=== PATIENT | female | born 1950 | race Caucasian/White ===

== ENCOUNTER → 2019-08-17 06:56 | Outpatient (CLI) | payer MEDICARE, SELFPAY ==
--- NOTE | ~2019-08-17 | XR_ITS ---
EXAMINATION: XR chest 2V EXAM DATE: 08/17/2019 07:09 INDICATION: Cough. No fever. Anterior chest pain. TECHNIQUE: Frontal and lateral projections of the chest obtained and reviewed. Comparison is made to prior examination from 07/01/2016. FINDINGS: The lungs are clear. There are no pleural effusions. The cardiomediastinal silhouette is within normal limits. There is no pneumothorax suspected. The bones and soft tissues are unremarkab le. IMPRESSION: No acute cardiopulmonary findings. Reviewed, dictated and finalized at location A.
== END ==
PROVIDERS: PCP Family Medicine; Visit Provider Family Medicine
DX: R05 Cough (principal)
CPT/HCPCS: 71046

== ENCOUNTER 2020-06-21 10:00 | Outpatient (CLI) | payer MEDICARE, SELFPAY ==
--- NOTE | 2020-06-21 10:34 | ECG_ITS ---
Measurements Intervals [place] Rate: 74 P: 45 SC: 199 QRS: 30 QRSD: 90 T: 40 QT: 349 QTc: 388 Interpretive Statements SINUS RHYTHM MINIMAL Q WAVES- INFERIOR LEADS BASELINE ARTIFACT- I, II, III, AVR, AVL, AVF BORDERLINE ECG Electronically Signed On 06-21-2020 10:47:51 REHABILITATION CLERK by Bernard Root D.O.
== END 2020-06-21 10:01 | disposition home or self-care (01) ==
LOC: ANHLAB 10:03 → ANHCARD 10:03
PROVIDERS: Family Provider Family Medicine; PCP Internal Medicine; Visit Provider Internal Medicine
DX: I10 Essential (primary) hypertension (principal)
CPT/HCPCS: 93005

== ENCOUNTER → 2020-10-19 01:47 | Outpatient (CLI) | payer MEDICARE, SELFPAY ==
[2020-10-19 19:55] LABS: SARS-CoV-2 RNA PCR Negative
== END ==
PROVIDERS: PCP Internal Medicine; Visit Provider Internal Medicine Gastroenterology
DX: Z01.812 Encounter for preprocedural laboratory examination (principal); Z20.822 Contact with and (suspected) exposure to COVID-19
CPT/HCPCS: C9803; U0003; U0005

== ENCOUNTER 2020-10-23 02:48 | Day surgery (SDC) | payer MEDICARE, SELFPAY ==
[2020-10-11 14:55] VITALS: BMI 27.5
[2020-10-23 09:28] VITALS: BP 142/73; PULSE 75; RESP 16; TEMP 36.6; O2SAT 95; BMI 28.9
[2020-10-23] MEDS: LACTATED RINGERS 1,000 ML 150 ML IV CONT (09:45)
--- NOTE | 2020-10-23 09:50 | WPDANESEPPF ---
Anes - Initial Pre Proc Eval Procedure: Operation Date: 10/23/20 10:00 Proposed Procedures p Esophagogastroduodenoscopy - Bill Suárez MD Date/Time: 10/23/20 09:50 Surgeon: Bill Suárez MD Pre Op Diagnosis: epigastric pain, GERD Patient Data Age: 70 Gender: F Height: 5 ft 5 in Weight: 78.9 kg Last Vital Signs Temp 97.8 F 10/23/20 09:28 Pulse 75 10/23/20 09:28 Resp 16 10/23/20 09:28 BP 142/73 H 10/23/20 09:28 Pulse Ox 95 10/23/20 09:28 Allergies Allergy/AdvReac Type Severity Reaction Status Date / Time No Known Allergies Allergy Verified 10/23/20 09:26 Home Medications Medication Instructions Recorded Confirmed Type ascorbic acid (vitamin C) 1,000 mg 1 gm PO DAILY 02/28/20 10/11/20 History tablet flaxseed oil 1,000 mg capsule 1,000 mg PO DAILY 02/28/20 10/11/20 History valacyclovir 500 mg tablet 500 mg PO DAILY 02/28/20 10/11/20 History vit C 250 mg-vit E 90 mg-zinc 40 1 tablet PO BID 02/28/20 10/11/20 History mg-copper 1 wl-cxzdwh-zxqdmo capsule losartan 25 mg tablet 25 mg PO DAILY #90 tablet 06/19/20 10/11/20 Rx omeprazole 40 mg capsule,delayed 40 mg PO DAILY #90 cap 07/18/20 10/11/20 Rx release rosuvastatin 5 mg tablet 5 mg PO DAILY #90 tablet 08/14/20 10/11/20 Rx calcium carbonate 600 mg calcium 600 mg PO BID 10/04/20 10/11/20 History (1,500 mg) tablet fluticasone propionate [Flonase 1 spray NASAL BID PRN 10/11/20 10/11/20 History Allergy Relief] Patient hx anesthesia problems: none Family hx anesthesia problems: none PMFSH Past Medical History Medical History (Updated 10/23/20 @ 09:48 by Terry Young MD) Acid reflux Dyslipidemia Essential hypertension Social History Social History (Updated 10/04/20 @ 11:11 by Rebecca Garcia MA) Smoking status: Never smoker Second hand tobacco smoke exposure: No Alcohol intake: never Living arrangements: with family Gender identity (if verbalized by the patient): Female Spiritual care concerns: No Anes - Eval Final PreProcedure Day of Procedure 10/23/20 09:50 Patient weight: obese Heart: regular rate and rhythm Lungs: clear to auscultation Airway: Mallampati scale class II Neurological: alert and oriented Last oral intake: >/= 8 hours ASA classification: III Emergent: no Anesthetic plan: proceed Anesthesia type and monitoring: general GIVS and standard monitoring Informed Consent: The patient's anesthetic plan and its attendant risks and benefits were discussed with the patient/family/POA. Questions were solicited and answers provided to the satisfaction of the patient/family/POA.
--- NOTE | 2020-10-23 09:54 | PM.HPGS ---
History of Present Illness History of Present Illness Consent: Risks, benefits, and alternatives have been discussed and questions answered. Patient agrees to proceed with procedure. Chief complaint: epigastric pain, GERD Narrative: Suzette Muir is a 70 year old female Who has had epigastric pain for the last several months. There is no particular pattern. She has a history of having an ulcer several years ago Review of Systems Review of Systems: All systems reviewed & are unremarkable except as noted in HPI and below PMFSH Past Medical History Medical History Acid reflux Dyslipidemia Essential hypertension Social History Social History Smoking status: Never smoker Second hand tobacco smoke exposure: No Alcohol intake: never Living arrangements: with family Gender identity (if verbalized by the patient): Female Spiritual care concerns: No Meds Home Medications and Allergies Home Medications Medication Instructions Recorded Confirmed Type ascorbic acid (vitamin C) 1,000 mg 1 gm PO DAILY 02/28/20 10/11/20 History tablet flaxseed oil 1,000 mg capsule 1,000 mg PO DAILY 02/28/20 10/11/20 History valacyclovir 500 mg tablet 500 mg PO DAILY 02/28/20 10/11/20 History vit C 250 mg-vit E 90 mg-zinc 40 1 tablet PO BID 02/28/20 10/11/20 History mg-copper 1 os-tfbiuy-fyjeit capsule losartan 25 mg tablet 25 mg PO DAILY #90 tablet 06/19/20 10/11/20 Rx omeprazole 40 mg capsule,delayed 40 mg PO DAILY #90 cap 07/18/20 10/11/20 Rx release rosuvastatin 5 mg tablet 5 mg PO DAILY #90 tablet 08/14/20 10/11/20 Rx calcium carbonate 600 mg calcium 600 mg PO BID 10/04/20 10/11/20 History (1,500 mg) tablet fluticasone propionate [Flonase 1 spray NASAL BID PRN 10/11/20 10/11/20 History Allergy Relief] Allergies Allergy/AdvReac Type Severity Reaction Status Date / Time No Known Allergies Allergy Verified 10/23/20 09:26 Vital Signs Vital Signs - 24 hr 10/23/20 09:28 Temperature 36.6 C Pulse Rate 75 Respiratory Rate 16 Blood Pressure 142/73 H Pulse Oximetry 95 Exam Resp: Auscultation: clear to auscultation bilaterally Cardio: Rate: regular rate Rhythm: regular rhythm GI: GI Palp: Yes Soft to palpation and No Tenderness to palpation present (GI) Assessment and Plan Assessment and plan (1) Epigastric pain: Code(s): R10.13 - Epigastric pain Status: Acute Assessment and Plan: EGD with possible biopsy or dilatation or cautery.
[2020-10-23 10:17] VITALS: BP 83/44; PULSE 69; RESP 17; O2SAT 98
[2020-10-23 10:27] VITALS: BP 83/47; PULSE 67; RESP 20; O2SAT 98
[2020-10-23 10:37] VITALS: BP 87/48; PULSE 60; RESP 18; O2SAT 98
== END 2020-10-23 11:01 | disposition home or self-care (01) ==
PROVIDERS: PCP Internal Medicine; Visit Provider Internal Medicine Gastroenterology
PROC: 0DJ08ZZ Inspection of Upper Intestinal Tract, Via Natural or Artificial Opening Endoscopic (ICD-10-PCS; CPT 43235; principal; 2020-10-23 10:00)
DX: R10.13 Epigastric pain (principal); K21.9 Gastro-esophageal reflux disease without esophagitis; K44.9 Diaphragmatic hernia without obstruction or gangrene; K57.10 Diverticulosis of small intestine without perforation or abscess without bleeding; E78.5 Hyperlipidemia, unspecified; I10 Essential (primary) hypertension
CPT/HCPCS: 43239; 87081; 88305; J2704; J7120

== ENCOUNTER 2021-11-13 12:29 | Outpatient (CLI) | payer MEDICARE, SELFPAY ==
--- NOTE | ~2021-11-13 | DEXA_ITS ---
Bone Density Report Name: ELLA BLUNT Age: 71 Sex: Female Ethnicity: White Date of : 1950 Indication: postmenopausal; screening for osteoporosis; prior fracture; cancer; Referring Provider: OLIVIA WILLARD Study: Bone densitometry was performed. Exam Date: November 13, 2021 Accession number: [id number] Bone Density: Region BMD T-score Z-score Classification AP Spine(L1-L4) 1.046 0.0 2.1 Normal Femoral Neck (Left) 0.768 -0.7 1.1 Normal Total Hip (Left) 0.924 -0.1 1.4 Normal Femoral Neck (Right) 0.736 -1.0 0.8 Normal Total Hip (Right) 0.867 -0.6 0.9 Normal Total Hip Mean 0.895 -0.4 1.2 Normal World Health Organization criteria for BMD impression classify patients as: Normal (T-score at or above -1.0), Osteopenia (T-score between -1.0 and -2.5), or Osteoporosis (T-score at or below -2.5). 10-year Fracture Risk: FRAX not reported because: All T-scores for Spine Total, Hip Total, Femoral Neck at or above -1.0 Clinical Information Provided by Patient: Has had a low trauma fracture Has used the following medications: Vitamin D, Calcium Has the following medical conditions: Cancer Patient maximum height was 65 Menopause Age: 54 Onset of menses at age 18 Number of children 3 Impression: The patient has normal bone mass. The patient has risk factors, including: previous fracture. Discussion: BONE DENSITY IS ABOVE THE MINIMUM DESIRABLE LEVEL AT ALL SKELETAL SITES TESTED. This patient?s bone mineral density is above the minimum desirable level (T-score -1.0 or better) at all sites measured. The patient should follow a healthful lifestyle (good nutrition with adequate calcium and vitamin D, and appropriate weight-bearing exercise). Follow-Up: Consider repeating this study in 5 years or sooner if there is some new clinical indication. Reported by: THIAGO on 11/13/2021 12:45:00 PM. Reviewed, dictated and finalized at location AKiya MEEK
== END 2021-11-13 12:30 | disposition home or self-care (01) ==
PROVIDERS: PCP Internal Medicine; Visit Provider Internal Medicine
DX: Z78.0 Asymptomatic menopausal state (principal)
CPT/HCPCS: 77080

== ENCOUNTER 2022-02-13 13:50 | Outpatient (CLI) | payer MEDICARE, SELFPAY | END 2022-02-13 13:51 | disposition home or self-care (01) | LOC: ANHAUDIO 13:51 | PROVIDERS: PCP Internal Medicine; Referring Provider Nurse Practitioner; Visit Provider Nurse Practitioner | DX: H91.90 Unspecified hearing loss, unspecified ear (principal) | CPT/HCPCS: 92557; 92567 ==

== ENCOUNTER → 2022-10-09 15:38 | Outpatient (CLI) | payer MEDICARE, SELFPAY ==
--- NOTE | ~2022-10-09 | XR_ITS ---
EXAMINATION: XR_RIBSBICXR1_CR DATE: 10/09/2022 16:00 INDICATION: Left anterior chest lump with tenderness. TECHNIQUE: A frontal view of the chest and 2 views on 3 radiographs of the right ribs and 2 views on 3 radiographs of the left ribs were obtained. COMPARISON: Chest 2 views 08/17/2019 FINDINGS: There is no pneumonia, pleural effusion, or pneumothorax. The heart size is normal. There i s no rib fracture. IMPRESSION: 1. No rib fracture. Reviewed, dictated and finalized at location E. IMPRESSION: 1. No rib fracture.
== END ==
PROVIDERS: PCP Family Medicine; Visit Provider Family Medicine
DX: R22.2 Localized swelling, mass and lump, trunk (principal)
CPT/HCPCS: 71111

== ENCOUNTER → 2022-10-16 11:11 | Outpatient (CLI) | payer MEDICARE, OTHER, SELFPAY ==
--- NOTE | ~2022-10-16 | US_ITS ---
US soft tissue chest 10/16/2022 11:23 Indication: Palpable area left lower ribs for 2 months. Tenderness. Procedure: High-resolution Limited ultrasound of the left lower ribs in the area of palpable concern Comparison: No prior studies for comparison. Findings: Normal heterogeneous soft tissues without focal solid or cystic mass. Impression: 1: Normal soft tissue ultrasound of the left lower rib region in the area of palpable concern. Reviewed, dictated and finalized at location B. Impression: 1: Normal soft tissue ultrasound of the left lower rib region in the area of pa lpable concern.
== END ==
PROVIDERS: PCP Family Medicine; Visit Provider Family Medicine
DX: R07.81 Pleurodynia (principal)
CPT/HCPCS: 76604

== ENCOUNTER 2023-02-05 17:35 | Emergency (ER) | payer MEDICARE, SELFPAY ==
--- NOTE | ~2023-02-05 | XR_ITS ---
EXAMINATION: XR wrist RT min 3V DATE: 02/05/2023 18:46 INDICATION: Right wrist pain post fall TECHNIQUE: Posteroanterior, ulnar deviation, oblique, and lateral views of the right wrist were obtai ivett. COMPARISON: Right hand radiographs dated 02/05/2023 at 5:56 PM FINDINGS: Evident only on the oblique projection is a punch type fracture involving the scaphoid fossa with approximately 1 mm depression of the affected portion of the articular cortex. Fractures mildly comm inuted with additional minimally displaced fracture along the dorsal cortex of the metaphysis. No oth er fractures identified. 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 IMPRESSION: 1. 1 mm depression of a mildly comminuted punch type fracture involving the scaphoid fossa and po sterior metaphyseal cortex of the distal right radius Reviewed, dictated and finalized at location A. IMPRESSION: 1. 1 mm depression of a mildly comminuted punch type fracture involving the scaphoid fossa and posterior metaphyseal cortex of the distal right radius
--- NOTE | ~2023-02-05 | XR_ITS ---
EXAMINATION: XR elbow RT 2V DATE: 02/05/2023 18:46 INDICATION: Diffuse right elbow pain post fall TECHNIQUE: Anteroposterior and lateral views of the right elbow were obtained. COMPARISON: None. FINDINGS: Alignment is normal. No fracture. Mild osteoarthritis at the right elbow. Suggestion of a small right elbow joint effusion with displacement of the anterior but not the posterior fat pad. Soft tissues a re otherwise unremarkable. IMPRESSION: 1. Mild osteoarthritis at the right elbow with small joint effusion but no evident acute osseous abno rmality. Reviewed, dictated and finalized at location A. IMPRESSION: 1. Mild osteoarthritis at the right elbow with small joint effusion but no evid ent acute osseous abnormality.
--- NOTE | ~2023-02-05 | XR_ITS ---
EXAMINATION: XR hand RT min 3V DATE: 02/05/2023 18:09 INDICATION: Right hand pain post fall TECHNIQUE: Posteroanterior, oblique and lateral views of the right hand were obtained. COMPARISON: None. FINDINGS: Diffuse osteopenia. There appears to be some widening at the scapholunate interval. Alignment is othe rwise normal. No fracture. Polyarticular osteoarthritis, moderate to severe at the radiocarpal joint with cystic change underlying the lunate fossa. Additional moderate to severe osteoarthritis at the f irst interphalangeal and second fifth distal interphalangeal joints, moderate severity osteoarthritis at the first carpometacarpal and first and fourth metacarpophalangeal joints and mild osteoarthritis at the midcarpal, triscaphe, and remaining metacarpophalangeal and interphalangeal joints. IMPRESSION: 1. Age-indeterminate widening of the scapholunate interval suggestive of scapholunate ligament tear/i nsufficiency. No fracture or other acute osseous abnormality. 2. 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 3. Diffuse osteopenia. Reviewed, dictated and finalized at location A. IMPRESSION: 1. Age-indeterminate widening of the scapholunate interval suggestive of scapho lunate ligament tear/insufficiency. No fracture or other acute osseous abnormal ity. 2. 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 3. Diffuse osteopenia.
--- NOTE | ~2023-02-05 | XR_ITS ---
EXAMINATION: XR foot LT min 3V DATE: 02/05/2023 18:09 INDICATION: Distal lateral left foot pain post fall TECHNIQUE: Dorsoplantar, two oblique and lateral views of the left foot were obtained. COMPARISON: 05/19/2010 FINDINGS: 40 degrees dorsal/medial angulation of a nondisplaced transverse extra articular fracture across the neck of the left fifth metatarsal. No other fractures identified. Alignment is otherwise normal. Mild polyarticular osteoarthritis at the first metatarsophalangeal joint and multiple tarsometatarsal and interphalangeal joints. Moderate-sized plantar calcaneal spur. IMPRESSION: 1. 40 degrees dorsal/medial angulation of a nondisplaced fracture at the neck of the fifth metatarsal . Reviewed, dictated and finalized at location A. IMPRESSION: 1. 40 degrees dorsal/medial angulation of a nondisplaced fracture at the neck o f the fifth metatarsal.
[2023-02-05 17:47] VITALS: BP 135/81; PULSE 95; RESP 16; TEMP 37.3; O2SAT 99
--- NOTE | 2023-02-05 18:19 | ED.FALL ---
HPI - Fall General Chief Complaint: Extremity Injury, Upper Stated Complaint: right arm injury Time Seen by Provider: 02/05/23 18:19 Source: patient Mode of arrival: ambulatory Limitations: no limitations History of Present Illness HPI Narrative: 72-year-old female presents with complaint left pain foot, right wrist pain and right elbow pain. Patient reports that she slipped on garage floor around 3:00 p.m. today. Denies hitting head. Was able to get up on her own. States she put right arm down to catch her fall. distal neurovascularly intact to right upper extremity. Decreased range of motion to right wrist due to pain. All systems reviewed and negative except as noted above. Related Data Home Medications Medication Instructions Recorded Confirmed flaxseed oil 1,000 mg capsule 1,000 mg PO DAILY 02/28/20 02/05/23 valacyclovir 500 mg tablet 500 mg PO DAILY 02/28/20 02/05/23 vit C 250 mg-vit E 90 mg-zinc 40 1 tablet PO BID 02/28/20 02/05/23 mg-copper 1 zy-cdqqgt-uujfyp capsule (PreserVision AREDS-2) calcium carbonate 600 mg calcium 600 mg PO BID 10/04/20 02/05/23 (1,500 mg) tablet (Calcium) xnlthfjl-bwu-mcija acid 0.4 1 tablet PO DAILY 08/05/22 02/05/23 mg-lycopene 300 mcg-lutein 250 mcg tablet (Centrum Silver) Allergies Allergy/AdvReac Type Severity Reaction Status Date / Time No Known Allergies Allergy Verified 02/05/23 19:17 Review of Systems Review of Systems: CONSTITUTIONAL: Denies fever, chills, or sweats. EYES: Denies visual changes, redness, or discharge. ENT: Denies rhinorrhea, congestion, sore throat, or otalgia. CARDIOVASCULAR: Denies chest pain, palpitations, or edema. RESPIRATORY: Denies cough or dyspnea. GASTROINTESTINAL: Denies abdominal pain, nausea, vomiting, or diarrhea. GENITOURINARY: Denies dysuria or hematuria. SKIN: Denies rash or itching. MUSCULOSKELETAL: Denies back pain, joint pain, or myalgia. Reports pain to left foot, right wrist and right elbow. NEUROLOGIC: Denies headache, numbness, or weakness. PSYCHIATRIC: Denies anxiety or depression. All other systems reviewed are negative, except as documented in HPI. [facility] Past Medical History Medical History Acid reflux Dyslipidemia Essential hypertension Social History Social History Smoking status: Never smoker Second hand tobacco smoke exposure: No Alcohol intake: never Substance use: never Substance use type: does not use Living arrangements: with family Gender identity (if verbalized by the patient): Female Spiritual care concerns: No Comments At time of signature, agree with nursing past medical, surgical, social and family history. There is no relevant family history pertinent to the presenting complaint. Exam Narrative: GENERAL: This is a well-nourished, well-developed patient, in no apparent distress. HEAD: normocephalic, atraumatic. EYES: PERRL. Sclera clear/white. Vision is grossly intact. EARS: External ears normal NOSE: External nose normal NECK: Neck supple, non-tender without lymphadenopathy, masses or thyromegaly. CARDIOVASCULAR: Regular rate and rhythm without murmurs, gallops, or rubs. RESPIRATORY: Clear to auscultation. Breath sounds equal bilaterally. No wheezes, rales, or rhonchi. SKIN: warm, Dry, intact with no suspicious lesions or rash, good texture and turgor. NEURO: awake, alert, and oriented to person, place and time. There were no obvious focal neurologic abnormalities. EXTREMITIES: Tenderness to distal aspect of left 5th metatarsal. Mild bruising noted. Tenderness to right radius with moderate swelling. Decreased range of motion to right wrist due to pain. Distal neurovascularly intact. Normal Range of motion to right elbow. Course Course Level of Care: Express Care Visit Vital Signs Vital signs: Vital Signs Temperature 37.3 C
== END 2023-02-05 19:54 | disposition home or self-care (01) ==
PROVIDERS: Emergency Provider Nurse Practitioner Family; PCP Family Medicine
DX: S92.355A Nondisplaced fracture of fifth metatarsal bone, left foot, initial encounter for closed fracture (principal); S52.501A Unspecified fracture of the lower end of right radius, initial encounter for closed fracture; S62.001A Unspecified fracture of navicular [scaphoid] bone of right wrist, initial encounter for closed fracture; W01.0XXA Fall on same level from slipping, tripping and stumbling without subsequent striking against object, initial encounter; K21.9 Gastro-esophageal reflux disease without esophagitis; E78.5 Hyperlipidemia, unspecified; I10 Essential (primary) hypertension
CPT/HCPCS: 29125; 73070; 73080; 73110; 73130; 73630; 99214; A4565; G0463

== ENCOUNTER 2023-06-01 11:17 | Emergency (ER) | payer MEDICARE, SELFPAY ==
--- NOTE | ~2023-06-01 | CT_ITS ---
EXAMINATION: CT abd pelvis lumbar wo con DATE: 06/01/2023 19:39 INDICATION: hematuria, BACK PAIN TECHNIQUE: Computed tomography (CT) of the abdomen and pelvis and lumbar spine was performed without intravenous contrast. Automated exposure control and iterative reconstruction technique were employed . The dose-length product was 687.78 mGy-cm. COMPARISON: 11/05/2010. FINDINGS: Abdomen/pelvis: Lower thorax: Aortic valve and coronary artery calcification. Minimal bibasilar scar/atelectasis. Liver: Multiple liver cysts. Biliary/Gallbladder: Gallbladder is normal. No bile duct dilation. Pancreas: No mass or duct dilation. Spleen: Normal. Adrenals:No mass. Kidneys: No suspicious mass, obstructing stone, or hydronephrosis. GI tract: Uncomplicated duodenal diverticulum. No small or large bowel dilation. Appendix not visuali zed. Diverticulosis without diverticulitis. Mesentery/Peritoneum: No ascites, mass, or free air. Retroperitoneum: No mass. Atherosclerotic abdominal aortic and/or arterial calcifications. Pelvis: Pelvic organs are within normal limits. Soft Tissues: Soft tissues and body wall unremarkable. Bones: No acute osseous finding. Lumbar spine: 5 nonrib-bearing lumbar-type vertebral bodies. Pedicles intact. Normal vertebral body alignment. Vert ebral body heights preserved. Multilevel moderate degenerative disc disease and facet arthropathy. No fracture or dislocation. No severe central canal or neural foraminal narrowing. IMPRESSION: No acute abdominopelvic process detected. No fracture or traumatic malalignment detected in the lumbar spine. Reviewed, dictated and finalized at location K. 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
--- NOTE | ~2023-06-01 | US_ITS ---
EXAMINATION: US venous doppler [facility] DATE: 06/01/2023 17:38 INDICATION: leg swelling . TECHNIQUE: Grayscale images without and with compression and Doppler images of the bilateral lower ex tremity veins were obtained. COMPARISON: Ultrasound venous lower extremity right 04/30/2016 FINDINGS: The right common femoral vein, profunda (deep) femoral vein, femoral vein, popliteal vein, peroneal v ein, posterior tibial veins, and greater saphenous vein are patent. The left common femoral vein, profunda (deep) femoral vein, femoral vein, popliteal vein, peroneal v ein, posterior tibial veins, and greater saphenous vein are patent. Garcia's cyst. IMPRESSION: Patent bilateral lower extremity veins. No evidence of deep venous thrombosis. Reviewed, dictated and finalized at location K. [employer] SAL[employer]
[2023-06-01 11:23] VITALS: BP 170/85; PULSE 93; RESP 16; TEMP 36.9; O2SAT 96
--- NOTE | 2023-06-01 15:05 | ED.GENADULT ---
HPI - General Adult General Chief complaint: Extremity Injury, Lower Stated complaint: leg and feet edema Time Seen by Provider: 06/01/23 15:04 History of Present Illness HPI narrative: Patient is a 72-year-old female here with lower extremity swelling and back pain. She states that the back pain began about 2 weeks ago. She did see her primary care doctor for this back pain and was started on Robaxin and ibuprofen and a prednisone pack. She notes that has not changed her symptoms in any way since initiating those medications, she has since completed the full course. She notes that the pain is located in her right buttock and radiates down to about her knee. She denies any numbness or weakness associated with the pain. Denies any bowel or bladder incontinence. She has been seeing a chiropractor since the pain began, she has had outpatient x-rays with a chiropractor but no additional imaging. She notes a fall in January and March which resulted in some extremity injuries, no recent falls. She does not remember any enticing event for the back pain. She does Ali notes some lower extremity swelling which began over the last couple of days. She has a history of intermittent foot swelling bilaterally which seems to be more severe when she has been on her feet a lot during the day. She notes that lower extremity swelling seems to extend up to her knees and is associated with a tight feeling in her legs bilaterally. No prior history of PE or DVT. No fever chills, no skin changes. Related Data Home Medications Medication Instructions Recorded Confirmed flaxseed oil 1,000 mg capsule 1,000 mg PO DAILY 02/28/20 05/17/23 valacyclovir 500 mg tablet 500 mg PO DAILY 02/28/20 05/17/23 calcium carbonate 600 mg calcium 600 mg PO BID 10/04/20 05/17/23 (1,500 mg) tablet (Calcium) wgshcedq-brk-eljug acid 0.4 1 tablet PO DAILY 08/05/22 05/17/23 mg-lycopene 300 mcg-lutein 250 mcg tablet (Centrum Silver) Allergies Allergy/AdvReac Type Severity Reaction Status Date / Time No Known Allergies Allergy Verified 06/01/23 15:01 Review of Systems Review of Systems: All systems reviewed & are unremarkable except as noted in HPI and below PMFSH Past Medical History Medical History Acid reflux Dyslipidemia 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 HEAD: Normocephalic, atraumatic. EYES: PERRLA and EOMI. ENT: Nares clear. Mucous membranes moist. NECK: Supple. CHEST: Clear to auscultation. No respiratory distress. HEART: Regular rate and rhythm. Normal peripheral pulses. ABDOMEN: Soft, nontender, nondistended. EXTREMITIES: Normal range of motion. No reproducible midline back pain. Positive straight leg test on the right. Bilateral mildly pitting edema which extends bilateral ankles to the bilateral knees. SKIN: Warm, dry, no rash. NEURO: No focal deficits. Alert and oriented x3. PSYCH: Normal mood and affect. Course Course Emergency Course: Chart review performed. Patient here with lower extremity edema, sciatica. PCP recently gave her steroid and muscle relaxer for her sciatica, finished prescription. PCP visit reviewed from 05/14/23 where she was seen for back pain. They note she was prescribed a medrol dose pack and robaxin. Triage vitals normal. Patient seen evaluated, nontoxic appearing. She has had some ongoing back pain for the last 3 weeks. Will do [place], Flexeril. I did discuss possibility of CT imaging however giv
[2023-06-01 15:06] VITALS: BP 154/94; PULSE 80; RESP 16; O2SAT 97
[2023-06-01 17:03] LABS: Basophils Percent Auto 0.9 % (0.2-1.2); Eosinophils Absolute Auto 0.1 K/mm3 (0-0.3); Eosinophils Percent Auto 1.8 % (0-4.4); Hematocrit 38.3 % (37.0-47.0); Hemoglobin 12.5 g/dL (12.0-15.0); Immature Granulocyte Absolute 0.01 K/mm3 (0.00-0.031); Immature Granulocyte Percent A 0.2 % (0-0.5); Lymphocytes Absolute Auto 0.78 K/mm3 (0.9-3.2); Lymphocytes Percent Auto 17.3 % (18.3-44.2); Mean Corpuscular HGB Conc 32.6 g/dl (32-36); Mean Corpuscular Hemoglobin 30.4 pg (26-34); Mean Corpuscular Volume 93.2 fl (80-100); Mean Platelet Volume 9.2 fl (7.4-10.4); Monocytes Absolute Auto 0.5 K/mm3 (0.1-0.6); Monocytes Percent Auto 11.1 % (2.6-8.5); Neutrophils Absolute Auto 3.1 K/mm3 (1.3-6.7); Neutrophils Percent Auto 68.7 % (45.5-73.1); Platelet Count Result 165 k/mm3 (150-375); Red Blood Count 4.11 M/mm3 (4.2-5.4); Red Cell Distribution Width 14.2 % (11.5-14.5); White Blood Count 4.5 K/mm3 (4.5-10.0)
[2023-06-01 17:11] LABS: Alanine Aminotransferase 29 U/L (6-35); Albumin Level 4.2 g/dL (3.5-5.1); Alkaline Phosphatase 92 U/L (38-126); Anion Gap 6 mmol/L (8-16); Aspartate Amino Transferase 29 U/L (14-36); Bilirubin,Total 0.5 mg/dL (0.2-1.3); Blood Urea Nitrogen 17 mg/dL (7-17); Calcium 9.4 mg/dL (8.4-10.2); Carbon Dioxide 29 mmol/L (22-30); Chloride 104 mmol/L (98-107); Estimated CRCL calculation 52 ml/min; Estimated Glomerular Filt Rate > 60; Glucose 93 mg/dL (65-110); Sodium 139 mmol/L (137-145)
[2023-06-01 17:19] LABS: NT Pro B Type Natriuretic Pept 176 pg/mL (19.9-100)
[2023-06-01] MEDS: CYCLOBENZAPRINE HCL 10 MG TABLET PO (17:41)
[2023-06-01 17:42] VITALS: BP 165/90; PULSE 84; RESP 17; O2SAT 98
[2023-06-01] MEDS: HYDROcodone/acetaminophen (*CRX) 5-325 MG TABLET 1 TAB PO (17:42)
[2023-06-01 18:27] LABS: Appearance Urine Clear (Clear); Bacteria Urine None Seen /hpf; Bilirubin Urine Negative (Negative); Blood Urine Negative (Negative); Color Urine Yellow (Yellow); Glucose Urine UA Negative (Negative); Ketones Urine 1+ mg/dL (Negative); Leukocyte Esterase Ur 2+ LEU/UL (Negative); Need Manual Microscopic Reviewed; Nitrate Urine Negative (Negative); Non Pathogenic Casts 0-2; Protein Urine Negative (Negative); Specific Grav Ur 1.025 (1.001-1.035); Squamous Epithelial Cell Urine Occasional /hpf (Few); Urobilinogen Urine 0.2 mg/dL (<2.0); WBC Urine 21-50 /hpf
[2023-06-01 18:30] LABS: Add Urine Microscopic? YES
== END 2023-06-01 21:25 | disposition home or self-care (01) ==
PROVIDERS: Emergency Provider Student in an Organized Health Care Education/Training Program; PCP Nurse Practitioner Family
DX: M54.40 Lumbago with sciatica, unspecified side (principal); N39.0 Urinary tract infection, site not specified; R31.9 Hematuria, unspecified; R60.0 Localized edema; E78.5 Hyperlipidemia, unspecified; I10 Essential (primary) hypertension
CPT/HCPCS: 36415; 72131; 74176; 80053; 81001; 83880; 85025; 87086; 93970; 99284; A9270

== ENCOUNTER 2023-08-02 08:27 | Outpatient (CLI) | payer MEDICARE, SELFPAY ==
--- NOTE | ~2023-08-02 | MR_ITS ---
EXAMINATION: MR lumbar spine wo con DATE: 08/02/2023 09:01 INDICATION: Lumbar radiculopathy. TECHNIQUE: Magnetic resonance imaging (MRI) of the lumbar spine was performed without intravenous con trast. Sequences included sagittal T2-weighted FSE, sagittal T2-weighted FS FSE, sagittal T1-weighted FSE, and axial T2-weighted FSE. COMPARISON: CT lumbar spine 06/01/23 FINDINGS: There is 7 degrees dextrocurvature of lumbar spine. There is 3 mm anterolisthesis of L4 on L5. Vertebral body heights are normal. There is mildly decreased disc height at L1-L2, moderately dec reased disc height at L2-L3, severely decreased disc height at L3-L4, moderately decreased disc heigh t at L4-L5, and mildly decreased disc height at L5-S1. The distal spinal cord signal intensity is nor mal. The conus medullaris is at L1-L2. The following disc levels are specifically discussed: L1-L2: The disc is bulging and has an annular fissure. There is mild bilateral facet joint osteoarthr itis. There is mild bilateral neural foraminal stenosis. There is mild central canal stenosis. L2-L3: The disc is bulging. There is mild bilateral facet joint osteoarthritis. There is mild bilater al neural foraminal stenosis. There is mild central canal stenosis. L3-L4: The disc is bulging. There is severe bilateral facet joint osteoarthritis. There is mild bilat eral neural foraminal stenosis. There is mild central canal stenosis. L4-L5: The disc is bulging. There is severe bilateral facet joint osteoarthritis. There is mild bilat eral neural foraminal stenosis. There is mild central canal stenosis. L5-S1: The disc is bulging with superimposed right subarticular zone extrusion with mass effect on ri ght S1 nerve root in right lateral recess. There is severe bilateral facet joint osteoarthritis. Ther e is mild bilateral neural foraminal stenosis. There is mild central canal stenosis. There is severe stenosis of right lateral recess. IMPRESSION: 1. Severe lumbar spondylosis. Of note, an extrusion at L5-S1 exerts mass effect on right S1 nerve reji t. Reviewed, dictated and finalized at location E. K ENTRY LEVEL IMPRESSION: 1. Severe lumbar spondylosis. Of note, an extrusion at L5-S1 exerts mass effect on right S1 nerve root.
== END 2023-08-02 08:28 | disposition home or self-care (01) ==
PROVIDERS: PCP Family Medicine
DX: M47.26 Other spondylosis with radiculopathy, lumbar region (principal)
CPT/HCPCS: 72148

== ENCOUNTER 2023-10-13 08:14 | Outpatient (CLI) | payer MEDICARE, SELFPAY ==
--- NOTE | ~2023-10-13 | XR_ITS ---
EXAMINATION: XR ribs LT 2V w CXR 2V DATE: 10/13/2023 08:46 INDICATION: Pleurodynia. Left chest pain. TECHNIQUE: Frontal and lateral views of the chest and 2 views on 3 radiographs of the left ribs were obtained. COMPARISON: Chest 2 views 08/17/2019 FINDINGS: CHEST TWO VIEWS: There is no pneumonia, pleural effusion, or pneumothorax. The heart size is normal. LEFT RIBS: There is no rib fracture. IMPRESSION: 1. No rib fracture. Reviewed, dictated and finalized at location E. IMPRESSION: 1. No rib fracture.
--- NOTE | ~2023-10-13 | XR_ITS ---
EXAMINATION: XR thoracic spine 3V DATE: 10/13/2023 08:46 INDICATION: Pleurodynia. TECHNIQUE: 3 views of thoracic spine were obtained. COMPARISON: Thoracic spine radiographs 07/22/2015 FINDINGS: There is 6 degrees levocurvature of the cervicothoracic spine. There is kyphosis of thoraci c spine. Vertebral body heights are normal. There is mildly decreased disc height at many levels in t horacic spine. There are endplate osteophytes at all levels. IMPRESSION: 1. Mild thoracic spondylosis. 2. Thoracic kyphosis. Reviewed, dictated and finalized at location E.
== END 2023-10-13 08:15 ==
LOC: MICIMG 08:15
PROVIDERS: PCP Family Medicine; Visit Provider Nurse Practitioner Family
DX: M43.04 Spondylolysis, thoracic region (principal); M40.294 Other kyphosis, thoracic region; R07.81 Pleurodynia
CPT/HCPCS: 71046; 71100; 72072

== ENCOUNTER 2024-06-28 | Emergency (ER) | payer MEDICARE, SELFPAY ==
--- OUTSIDE RECORDS SUMMARY | 2024-06-28 00:02 | XMS_ITS | Clinical Summary ---
Author Organization [facility] Address [address] [place] [address]. [place] [address] [place] [address] Care Team Providers Care Stave Block Roller Name Role Phone Hernan Hudson MD Primary Care Provider [phone] Allergies No known active allergies Medications losartan (COZAAR) 25 MG tablet Take 1 tablet (25 mg total) by mouth daily. Active valACYclovir (VALTREX) 500 MG tablet Take 1 tablet (500 mg total) by mouth daily. Active omeprazole (PRILOSEC) 40 MG capsule Take 1 capsule (40 mg total) by mouth daily. Active rosuvastatin (CRESTOR) 5 MG tablet Take 1 tablet (5 mg total) by mouth nightly at bedtime. Active multi vitamin/mineral s (THERA-M ENHANCED) tablet Take 1 tablet by mouth daily. Active Multiple Vitamins-Minera ls (PRESERVISION AREDS 2 OR) Take by mouth 2 (two) times daily. Active Flaxseed, Linseed, (FLAXSEED OIL) 1200 MG Cap Active vitamin D3, cholecalciferol , 125 mcg capsule Take 1 capsule (125 mcg total) by mouth daily. Active gabapentin (NEURONTIN) 300 MG capsule One tablet po qhs x 3 days then increase to bid for 3 days then increase to tid 90 capsule 3 4 Active dorzolamide (TRUSOPT) 2 % ophthalmic solution Place 1 drop into both eyes 3 (three) times daily. 4 Active hydroCHLOROthia zide (MICROZIDE) 12.5 MG capsule Take 1 capsule (12.5 mg total) by mouth daily. 4 Active prednisoLONE acetate (PRED FORTE) 1 % ophthalmic suspension Place 1 drop into both eyes 2 (two) times daily. ONLY USES AFTER GETS EYE INJECTIONS Active Active Problems Problem Noted Date Diagnosed Date Lumbar radiculopathy 08/03/2023 Pyriformis syndrome, right 06/16/2023 Myofascial pain 06/16/2023 Family History Medical History Relation Comments Kidney failure Father HYPERCHOLEST Mother Hypertension Mother Arthritis Sister Relation Status Comments Father Mother Alive Sister Alive Social History Tobacco Use Types Packs/Day Years Used Date Smoking Tobacco: Never Smokeless Tobacco: Never Tobacco Cessation:Counseling Given: Not Answered Alcohol Use Standard Drinks/Week Comments Never 0 (1 standard drink = 0.6 oz pur e alcohol) Comments No Sex and Gender Information Value Date Recorded Sex Assigned at Not on file Legal 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 Gender Identity Not on file Sexual Orientation Not on file Last Filed Vital Signs Vital Sign Reading Time Taken Comments Blood Pressure 123/82 12/14/2023 7:59 AM CDT Pulse 76 12/14/2023 7:51 AM CDT Temperature 36.2 ??C (97.2 ??F) 12/14/2023 6:34 AM CD T Respiratory Rate 18 12/14/2023 7:51 AM CDT Oxygen Saturation 97% 12/14/2023 7:51 AM CDT Inhaled Oxygen Concentration - - Weight 82.6 kg (182 lb) 12/14/2023 6:34 AM CDT Height 163.8 cm (5' 4.5 ) 12/14/2023 6:34 AM CDT Body Mass Index 30.76 12/14/2023 6:34 AM CDT Plan of Treatment Health Maintenance Due Date Last Done Comments Colorectal Cancer Screening Colonoscopy (10 Years) 1950 Hepatitis C 1969 DTaP, Tdap and Td Vaccines (1 - Tdap) 1970 Zoster Vaccines (2 of 3) 11/28/2015 10/03/2015 Annual Medicare Wellness Visit 2016 Dexa Scan (General) 2016 Pneumococcal Vaccine: 65+ Years (3 of 3 - PPSV23 or PCV20) 04/05/2022 04/05/2017, 03/31/2016 COVID-19 Vaccine ( season) 2024 03/24/2023, 02/23/2022, 11/17/2021, Additional history exists Influenza Adult (#1) 2024 03/22/2019, 04/01/2018, 04/05/2017, Additional history exists Mammogram Screening 07/21/2025 07/21/2023, 07/20/2022, 07/18/2021, Additional history exists RSV Immunization or 60+ Years (1 - 1-dose 75+ series) 2026 Meningococcal B Vaccine Aged Out No l onger eligible based on patient's age to complete this topic Meningococcal Vaccine Aged Out No frank shaina eligible based on patient's age to complete this topic RSV Immunizations Under 20 Months Aged Out No longer eligible based on patient's age to complete this topic [place] [address] [facility] MEDICARE Care Teams Stave Block Roller Relationship Specialty Start Date End Date Hernan Hudson MD [address] [place] [address] PCP - General FAMILY PRACTICE 06/16/23
--- OUTSIDE RECORDS SUMMARY | 2024-06-28 00:02 | XMS_ITS | Clinical Summary ---
Author Organization [facility] Address [address] [place] [address] Care Team Providers Care Top Flavor Attendant Name Role Phone Addie Meyer MD Unavailable [phone] Addie Meyer MD Primary Care Provider + Allergies No known active allergies Medications calcium-vitam in D3-vitamin K 500-100-40 mg-unit-mcg tablet,chewab le 12/10/2015Calcium soft chew, po solid 500-100-40 Tablet, chewablePOdailyCurrent Medication 016 Active ergocalcifero l (VITAMIN D) 50,000 unit capsule Take 1 capsule (50,000 Units total) by mouth 4 019 Active losartan (COZAAR) 50 mg tablet Take 0.5 tablets (25 mg total) by mouth daily 1 019 Active valACYclovir (VALTREX) 500 mg tablet Take 1 tablet (500 mg total) by mouth daily 2 019 Active vit C-vit N-ellyxf-qsko -lutein (PRESERVISION LUTEIN) 226 mg-200 unit -5 mg-0.8 mg capsule Active ascorbic acid (vitamin C) 1,000 mg tablet Active flaxseed oil 1,000 mg capsule Active multivit with minerals/lute in (MULTIVITAMIN 50 PLUS ORAL) Active vit C/E/Zn/coppr/ lutein/zeaxan (PRESERVISION AREDS-2 ORAL) Active rosuvastatin (CRESTOR) 5 mg tablet Take 1 tablet (5 mg total) by mouth daily Act carlton omeprazole (PriLOSEC) 40 mg capsule Take 1 capsule (40 mg total) by mouth daily Act carlton dorzolamide (TRUSOPT) 2 % ophthalmic solution Administer 1 drop into the left eye 3 (three) times a day Active prednisoLONE acetate (PRED FORTE) 1 % ophthalmic suspension 1 drop 2 (two) times a day Every 8 weeks Active Active Problems Problem Noted Date Diagnosed Date Malignant neoplasm of upper- outer quadrant of left female breast 11/22/2012 Immunizations Name Administration Dates Next Due Influenza, Quadrivalent, Hig h Dose, Preservative Free, Intrr 03/20/2021,02/29/2020 Influenza, Trivalent, High D ose, Split, Preservative Free, Intramuscular 03/22/2019,04/01/2018,04/05/2017 Influenza, Trivalent, IM (MDV) 03/05/2014 Influenza, Trivalent, Preser vative Free, Intramuscular 03/31/2016,03/15/2015 Influenza, Unspecified 09/04/2013 Pneumococcal Conjugate PCV 13 04/05/2017 Pneumococcal Polysaccharide PPV23 03/31/2016 ZOSTER LIVE 10/03/2015 Social History Tobacco Use Types Packs/Day Years Used Date Smoking Tobacco: Never Smokeless Tobacco: Never Tobacco Cessation:Counseling Given: No Alcohol Use Standard Drinks/Week Comments Not Currently 0 (1 standard drink = 0.6 oz pur e alcohol) Personal Safety Answer Date Recorded Getting School Help Needed Not on file 05/11 Comments Unknown Sex and Gender Information Value Date Recorded Sex Assigned at Not on file 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 Gender Identity Not on file Sexual Orientation Not on file Obstetrics History Last Filed Vital Signs Vital Sign Reading Time Taken Comments Blood Pressure 122/73 11/20/2022 8:26 AM CDT Pulse 96 11/20/2022 8:26 AM CDT Temperature 36.4 ??C (97.5 ??F) 11/20/2022 8:26 AM CD T Respiratory Rate 16 11/20/2022 8:26 AM CDT Oxygen Saturation 92% 11/20/2022 8:26 AM CDT Inhaled Oxygen Concentration - - Weight 79.4 kg (175 lb) 03/07/2024 4:19 PM CDT Height 165.1 cm (5' 5 ) 03/07/2024 4:19 PM CDT Body Mass Index 29.12 03/07/2024 4:19 PM CDT Plan of Treatment Health Maintenance Due Date Last Done Comments Colon Cancer Screening-Colonoscopy 1950 Depression Screening 1951 Fall Risk Assessment 1950 Hepatitis C Screening 1950 Osteoporosis Screening-Bone Density Scan 1951 DTaP/Tdap/Td Vaccine (1 - Tdap) 1962 Hepatitis B Screening 1969 Zoster Vaccine (2 of 3) 11/28/2015 10/03/2015 Well Visit 65+ 2016 Pneumococcal vaccine 65+ (3 of 3 - PPSV23 or PCV20) 04/05/2022 04/05/2017, 03/31/2016 Covid-19 Vaccine (4 - 2023-2 5 season) 2024 03/27/2021, 07/30/2020, 06/27/2020 Influenza Vaccine (#1) 2024 , 02/29/2020, 03/22/2019, Additional history exists Breast Cancer Screening-Mammogram 07/21/2024 07/21/2023, 07/21/2023, 07/20/2022, Additional history exists Procedures Procedure Name Priority Date/Time Associated Diagnosis Comments SCREENING MAMMOGRAM BILATERAL W JOSE Schedule Routine, Read Routine (OP Routine) 07/21/2023 8:50 AM ASPHALT DISTRIBUTOR TENDER Screening mammogram, encounter for from Last 3 Months or Most Recently Relevant to Health Maintenance Results * Screening Mammogram Bilateral W Jose (07/21/2023 8:50 AM ASPHALT DISTRIBUTOR TENDER) Anatomical Region Laterality Modality Breast Bilateral Mammography Narrative 07/21/2023 4:08 PM ASPHALT DISTRIBUTOR TENDER Mammogram Technique: Bilateral Digital Breast Tomosynthesis, Bilateral C-view 2D Screening mammogram. ??Views obtained: ??bilateral craniocaudal and bilateral mediolateral oblique. ??Computer Aided Detection was performed. Mammogram Findings: The present examination has been compared to prior imaging studies performed at [facility] on 03/27/2020 and 07/18/2021, and at [facility] on 07/20/2022. The breasts are heterogeneously dense, which may obscure small masses. There is no suspicious abnormality in either breast. Impression: There is no mammographic evidence of malignancy. Annual screening mammography is recommended. If supplemental screening is desired, breast MRI would be recommended in this patient with heterogeneously dense breasts. OVERALL FINAL ASSESSMENT: BI-RADS CATEGORY 1: ??Negative. Procedure Note Faustina Ibanez MD - 07/21/2023 Mammogram Technique: Bilateral Digital Breast Tomosynthesis, Bilateral C-view 2D Screening mammogram. Views obtained: bilateral craniocaudal and bilateral mediolateral oblique. Computer Aided Detection was performed. Mammogram Findings: The present examination has been compared to prior imaging studies performed at [facility] on 03/27/2020 and 07/18/2021, and at [facility] on 07/20/2022. The breasts are heterogeneously dense, which may obscure small masses. There is no suspicious abnormality in either breast. Impression: There is no mammographic evidence of malignancy. Annual screening mammography is recommended. If supplemental screeningis desired, breast MRI would be recommended in this patient with heterogeneously dense breasts. OVERALL FINAL ASSESSMENT: BI-RADS CATEGORY 1: Negative. us Self Screening Mammogram IMG MAMMO PROCEDURES Fi nal Result from Last 3 Months or Most Recently Relevant to Health Maintenance Insurance [place] [address] MEDICARE COMMERCIAL GENERIC MEDICARE [facility] SENIOR SUPPLEMENT COMMERCIAL GENERIC MEDICARE [facility] Care Teams Top Flavor Attendant Relationship Specialty Start Date End Date Addie Meyer MD [address] [place] [address] PCP - General Gynecology 05/11/23 Addie Meyer MD [address] [place] [address] Gynecology 01/16/20
--- OUTSIDE RECORDS SUMMARY | 2024-06-28 00:02 | XMS_ITS | Encounter Summary ---
Author Organization [facility] Address [address] [place] [address] Care Team Providers Care Delicatessen Manager Name Role Phone Lewis Paez MD Primary Care Provider [phone] Addie Meyer MD Unavailable [phone] Unknown, Noticlemente Primary Care Provider Unavail able Addie Meyer MD Primary Care Provider + Encounter Details Date Type Department Care Team (Late st Contact Info) Description 12/27/2018 Telephone [facility] Advanced Medicine Radiation Oncology [address] [facility] [place] [address] Anastacio Millan CMA Social History Tobacco Use Types Packs/Day Years Used Date Smoking Tobacco: Never Smokeless Tobacco: Never Alcohol Use Standard Drinks/Week Comments Not Currently 0 (1 standard drink = 0.6 oz pur e alcohol) Comments Unknown Sex and Gender Information Value Date Recorded Sex Assigned at Not on file 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 Gender Identity Not on file Sexual Orientation Not on file documented as of this encounter Plan of Treatment Not on file documented as of this encounter Visit Diagnoses Not on filedocumented in this encounter Care Teams Delicatessen Manager Relationship Specialty Start Date End Date Lewis Paez MD [address] [place] [id number] PCP - General 03/10/17 11/19/20 Unknown, Pamela PCP - General 07/20/22 05/10/23 Addie Meyer MD [address] [place] [address] PCP - General Gynecology 05/11/23 Addie Meyer MD [address] [place] [address] Gynecology 01/16/20 documented as of this encounter
--- OUTSIDE RECORDS SUMMARY | 2024-06-28 00:02 | XMS_ITS | Encounter Summary ---
Author Organization [facility] Address [address] [place] [address]. [place], [place] [address] [place] [address] Care Team Providers Care Drafter Automotive Design Name Role Phone Hernan Hudson MD Primary Care Provider [phone] Reason for Referral * Imaging (Routine) - New Request Specialty Diagnoses / Procedures Referred By Rosa keene Referred To Contact RADIOLOGY Diagnoses Lumbar radiculopathy Procedures MRI LUMB SPINE WO CON Tanisha Rodriguez MD [facility] [address] [place] [address] Phone: tel: fax: Referral ID Status Reason Start Date Expiration Date V isits Requested Visits Authorized [id number] New Request 07/20/2023 08/19/2024 1 1 ER 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 Encounter Details Date Type Department Care Team (Late st Contact Info) Description 07/20/2023 Telephone [facility] [place] [address] [id number] Tanisha Rodriguez MD [facility] [address] [place] [address] Social History Tobacco Use Types Packs/Day Years Used Date Smoking Tobacco: Never Smokeless Tobacco: Never Alcohol Use Standard Drinks/Week Comments Never 0 (1 standard drink = 0.6 oz pur e alcohol) Comments No Sex and Gender Information Value Date Recorded Sex Assigned at Not on file Legal Sex Female 2:54 PM PICKER 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 Gender Identity Not on file Sexual Orientation Not on file documented as of this encounter Plan of Treatment Scheduled Orders Name Type Priority Associated Diagnoses Orde r Schedule MRI LUMB SPINE WO CON MRI Routine Lumbar radiculopathy Expected: 07/20/2023, Expires: 07/20/2024 documented as of this encounter Visit Diagnoses Diagnosis Lumbar radiculopathy- Primary Thoracic or lumbosacral neuritis or radiculitis, unspecified documented in this encounter Care Teams Drafter Automotive Design Relationship Specialty Start Date End Date Hernan Hudson MD [address] [place] [id number] PCP - General FAMILY PRACTICE 06/16/23 documented as of this encounter
--- OUTSIDE RECORDS SUMMARY | 2024-06-28 00:02 | XMS_ITS | Referral Summary ---
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 Gender Identity Not on file Sexual Orientation [...] 03/07/2024 4:19 PM CDT Plan of Treatment Not on file Procedures Procedure Name Priority Date/Time Associated Diagnosis Comments SCREENING MAMMOGRAM BILATERAL W JOSE Schedule Routine, Read Routine (OP Routine) 07/21/2023 8:50 AM AVIATION MAINTENANCE INSTRUCTOR Screening mammogram, encounter for from Last 3 Months or Most Recently Relevant to Health Maintenance Results * Screening Mammogram Bilateral W Jose (07/21/2023 8:50 AM AVIATION MAINTENANCE INSTRUCTOR) Anatomical Region Laterality Modality Breast Bilateral Mammography Narrative 07/21/2023 4:08 PM AVIATION MAINTENANCE INSTRUCTOR Mammogram Technique: Bilateral Digital Breast Tomosynthesis, Bilateral C-view 2D Screening mammogram. ??Views obtained: ??bilateral craniocaudal and bilateral mediolateral oblique. ??Computer Aided Detection was performed. Mammogram Findings: The present examination has been compared to prior imaging studies performed at [facility] on 03/27/2020 and 07/18/2021, and at [facility] on 07/20/2022. The breasts are heterogeneously [...] compared to prior imaging studies performed at [facility] on 03/27/2020 and 07/18/2021, and at [facility] on 07/20/2022. The breasts are heterogeneously [...] Most Recently Relevant to Health Maintenance Insurance MEDICARE COMMERCIAL GENERIC MEDICARE [employer] SENIOR SUPPLEMENT COMMERCIAL [place] [address] [place] [address] MEDICARE [facility] Care Teams Pullboat Engineer Relationship Specialty Start Date End Date Addie Meyer MD [address] [address] PCP - General Gynecology 05/11/23 Addie Meyer MD [address] [address] Gynecology 01/16/20
[2024-06-28 00:16] VITALS: BP 149/63; PULSE 86; RESP 16; TEMP 36.7; O2SAT 97
[2024-06-28 00:34] LABS: Basophils Percent Auto 0.6 % (0.2-1.2); Eosinophils Absolute Auto 0.1 K/mm3 (0-0.3); Eosinophils Percent Auto 1.8 % (0-4.4); Hematocrit 38.5 % (37.0-47.0); Hemoglobin 12.9 g/dL (12.0-15.0); Immature Granulocyte Absolute 0.02 K/mm3 (0.00-0.031); Immature Granulocyte Percent A 0.4 % (0-0.5); Lymphocytes Absolute Auto 1.56 K/mm3 (0.9-3.2); Lymphocytes Percent Auto 31.6 % (18.3-44.2); Mean Corpuscular HGB Conc 33.5 g/dl (32-36); Mean Corpuscular Hemoglobin 31.1 pg (26-34); Mean Corpuscular Volume 92.8 fl (80-100); Mean Platelet Volume 8.9 fl (7.4-10.4); Monocytes Absolute Auto 0.5 K/mm3 (0.1-0.6); Monocytes Percent Auto 10.5 % (2.6-8.5); Neutrophils Absolute Auto 2.7 K/mm3 (1.3-6.7); Neutrophils Percent Auto 55.1 % (45.5-73.1); Platelet Count Result 179 k/mm3 (150-375); Red Blood Count 4.15 M/mm3 (4.2-5.4); Red Cell Distribution Width 13.2 % (11.5-14.5); White Blood Count 4.9 K/mm3 (4.5-10.0)
[2024-06-28 00:44] LABS: Alanine Aminotransferase 22 U/L (6-35); Albumin Level 4.1 g/dL (3.5-5.1); Alkaline Phosphatase 101 U/L (38-126); Anion Gap 9 mmol/L (4-12); Aspartate Amino Transferase 26 U/L (14-36); Bilirubin,Total 0.5 mg/dL (0.2-1.3); Blood Urea Nitrogen 17 mg/dL (7-17); Carbon Dioxide 24 mmol/L (22-30); Chloride 104 mmol/L (98-107); Estimated CRCL calculation 49 ml/min; Estimated Glomerular Filt Rate 58; Glucose 104 mg/dL (65-110); Lipase 256 U/L (23-300); Potassium 3.8 mmol/L (3.4-5.0); Sodium 137 mmol/L (137-145)
[2024-06-28 01:12] LABS: Influenza A QL RT-PCR Negative (Negative); Influenza B QL RT-PCR Negative (Negative); RSV RNA, RT-PCR Negative (Negative); SARS-CoV-2 RNA PCR Negative (Negative)
[2024-06-28 03:00] VITALS: BP 155/90; PULSE 80; RESP 17; O2SAT 95
[2024-06-28 03:09] LABS: Add Urine Microscopic? YES; Appearance Urine Turbid (Clear); Bacteria Urine 1+ /hpf; Bilirubin Urine Negative (Negative); Blood Urine Non-Hemolyzed Trace (Negative); Color Urine Dark Yellow (Yellow); Glucose Urine UA Negative (Negative); Ketones Urine Trace mg/dL (Negative); Leukocyte Esterase Ur 3+ LEU/UL (Negative); Nitrate Urine Negative (Negative); Protein Urine 1+ mg/dL (Negative); Specific Grav Ur 1.019 (1.001-1.035); Squamous Epithelial Cell Urine Occasional /hpf (Few); Urobilinogen Urine 0.2 mg/dL (<2.0); WBC Urine >100 /hpf (0-3); pH Urine 5.5 (5.0-9.0)
[2024-06-28 03:25] VITALS: BP 141/77; PULSE 81; RESP 17; O2SAT 95
[2024-06-28 05:03] VITALS: BP 128/69; PULSE 70; RESP 17; O2SAT 95
--- OUTSIDE RECORDS SUMMARY | 2024-06-28 05:20 | XMS_ITS | Clinical Summary ---
Author Organization [facility] Address [address] [facility] [place] [address] Care Team Providers Care Territory Sales Consultant Name Role Phone Unavailable Primary Care Provider Unavailabl e Source Comments [facility],non-owned Affiliates and Associated Physician Practices is amultiple site organization consisting of ambulatory clinics and hospital sitesin [place], [place], [place] and [place]. This disclosure is being madepursuant to the Care Everywhere program and may not contain all information available regarding this patient. Last updated 18.[facility] Social History Tobacco Use Types Packs/Day Years Used Date Smoking Tobacco: Never Assessed Sex and Gender Information Value Date Recorded Sex Assigned at Not on file Gender Identity Not on file Sexual Orientation Not on file Plan of Treatment Health Maintenance Due Date Last Done Comments BONE DENSITY TESTING 1950 COLOGUARD (AGES 45-75) - COL ON CA SCREENING 1950 COLON MONITORING 1950 COLONOSCOPY - COLON CA SCREENING 1951 CT COLONOGRAPHY - COLON CA SCREENING 1950 Colorectal Cancer Screening 1950 FIT - COLON CA SCREENING 1950 FLEX SIG - COLON CA SCREENING 1950 LIPID TESTING 1950 MAMMOGRAM 1950 MEDICARE AWV ? 12 MONTHS 1950 HEPATITIS C SCREENING 07/23/1969 DTAP/TDAP/TD VACCINES (1 - Tdap) 1970 PNEUMOCOCCAL VACCINE 50+ (1 of 1 - PCV) 2001 ZOSTER VACCINE (1 of 2) 2001 COVID-19 VACCINE ( - 2023-2 5 season) 2024 INFLUENZA VACCINE (#1) 2024 DEPRESSION SCREENING 05/31/2024 Respiratory Syncytial Virus (RSV) Vaccine Pt: or over 60 yrs (1 - 1-dose 75+ series) 2026 HEPATITIS B VACCINE Aged Out No longe r eligible based on patient's age to complete this topic HIB VACCINE Aged Out No longer eligi ble based on patient's age to complete this topic HPV VACCINE Aged Out No longer eligi ble based on patient's age to complete this topic MENINGOCOCCAL (Group B) VACCINE Aged Out No longer eligible based on patient's age to complete this topic MENINGOCOCCAL VACCINE Aged Out No frank shaina eligible based on [place]'s [place] [address]
--- OUTSIDE RECORDS SUMMARY | 2024-06-28 05:20 | XMS_ITS | Encounter Summary ---
Author Organization [facility] Health Address [address] [facility] [place] [address] Care Team Providers Care Cash Register Balancer Name Role Phone Unavailable Primary Care Provider Unavailabl e Encounter Details Date Type Department Care Team (Late st Contact Info) Description 03/15/2018 Lab Requisition [facility] Care DermPath Lab [address] [facility], [place] [address] Marilee Ogden MD [address] [facility] [address] [place] [address] Social History Tobacco Use Types Packs/Day Years Used Date Smoking Tobacco: Never Assessed Sex and Gender Information Value Date Recorded Sex Assigned at Not on file Gender Identity Not on file Sexual Orientation Not on file documented as of this encounter Plan of Treatment Not on file documented as of this encounter Procedures Procedure Name Priority Date/Time Associated Diagnosis Comments DERMATOPATH TECHNICAL REPORT Routine 03/14/2018 12:00 AM CDT documented in this encounter Results * DERMATOPATH TECHNICAL REPORT (03/14/2018 12:00 AM CDT) Case Report Dermatopathology Report ? Case: [id number] ? Authorizing Provider: ??Marilee Ogden MD ? Collected: ? 03/14/2018 12:00 AM ? Pathologist: ? Anival Samson MD ? Received: ?03/15/2018 07:13 AM ? Specimen: ?Skin, left song ? 12:12 PM CDT DERMATOPATHOLOGY LABORATORY Clinical History DF. Cuts shaving. 12:12 PM CDT DERMATOPATHOLOGY LABORATORY Gross Description Specimen A: Received is one formalin filled container labeled with the patient's name and designated left song. The specimen consists of a shave measuring [id number]. Jar 0. [facility] Dermatopathology Laboratory performed the technical component only. 12:12 PM CDT DERMATOPATHOLOGY LABORATORY Embedded Images 12:12 PM CDT DERMATOPATHOLOGY LABORATORY DISCLAIMER An external and internal positive and negative controls are appropriate for the histochemical, immunohistochemical and immunofluorescence stain(s) in this case (if any), except where stated explicitly. The performance characteristics of the stain(s) cited in this report were developed and its performance characteristic determined by the Dermatopathology Laboratory at [facility]. These tests need not be, and therefore are not, approved by the [place] Food and Drug Administration. The tests are used for clinical purposes. 12:12 PM T DERMATOPATHOLOGY LABORATORY Pathology/Cytolog y TISSUE SPECIMEN FROM SKIN / Unknown 03/14/2018 03/15/2018 7:13 AM CDT Marilee Ogden MD LAB - PATHOLOGY/CYT OLOGY ORDERABLES Performing Organization Address City/State/[facility] Co de Phone Number DERMATOPATHOLOGY LABORATORY [facility] - Department of Dermatology [address] [facility], [address]th [place] [address], [facility] [phone] documented in this encounter Visit Diagnoses Not on filedocumented in this encounter
--- OUTSIDE RECORDS SUMMARY | 2024-06-28 05:20 | XMS_ITS | Encounter Summary ---
Author Organization [facility] Address [address] [place] [address]. [place], [place] [address] [place] [address] Care Team Providers Care Wedding Florist Name Role Phone Hernan Hudson MD Primary Care Provider [phone] Reason for Referral * Imaging (Routine) - New Request Specialty Diagnoses / Procedures Referred By Rosa keene Referred To Contact RADIOLOGY Diagnoses Lumbar radiculopathy Procedures MRI LUMB SPINE WO CON Tanisha Rodriguez MD [address] [facility] [address] [place] [address] Phone: tel: fax: Referral ID Status Reason Start Date Expiration Date V isits Requested Visits Authorized [id number] New Request 07/20/2023 08/19/2024 1 1 ATIONS AND MAINTENANCE MANAGER Encounter Details Date Type Department Care Team (Late st Contact Info) Description 07/20/2023 Telephone [facility] [place] [address] [phone] Tanisha Rodriguez MD [address] [facility] [address] [place] [address] Social History Tobacco Use Types Packs/Day Years Used Date Smoking Tobacco: Never Smokeless Tobacco: Never Alcohol Use Standard Drinks/Week Comments Never 0 (1 standard drink = 0.6 oz pur e alcohol) Comments No Sex and Gender Information Value Date Recorded Sex Assigned at Not on file Legal Sex Female 2:54 PM OPERATIONS AND MAINTENANCE MANAGER Gender Identity Not on file Sexual Orientation [...] unspecified documented in this encounter Care Teams Wedding Florist Relationship Specialty Start Date End Date Hernan Hudson MD [address] [place] [id number] PCP - General FAMILY PRACTICE 06/16/23 documented as of this encounter
--- OUTSIDE RECORDS SUMMARY | 2024-06-28 05:20 | XMS_ITS | Patient Health Summary ---
Author Organization [facility] Address [address] [facility] [place] [address] Care Team Providers Care Engraver Letter Name Role Phone Unavailable Primary Care Provider Unavailabl e Note from [facility],non-owned Affiliates and Associated Physician Practices is amultiple site organization consisting of ambulatory clinics and hospital sitesin [place], [place], [place] and [place]. This disclosure is being madepursuant to the Care Everywhere program and may not contain all information available regarding this patient. Last updated 18.[facility] Social History Tobacco Use Types Packs/Day Years Used Date Smoking Tobacco: Never Assessed Sex and Gender Information Value Date Recorded Sex Assigned at Not on file Gender Identity Not on file Sexual Orientation Not on file Procedures * DERMATOPATH TECHNICAL REPORT(Performed 03/14/2018) Results * DERMATOPATH TECHNICAL REPORT (03/14/2018 12:00 AM CDT) Case Report Dermatopathology Report ? Case: [id number] ? Authorizing Provider: ??Marilee Ogden MD ? [...] The specimen consists of a shave measuring [id number]. Jar 0. [facility] Dermatopathology Laboratory performed the technical component only. 12:12 PM CDT DERMATOPATHOLOGY LABORATORY Embedded Images 12:12 PM T DERMATOPATHOLOGY LABORATORY DISCLAIMER An external and internal positive and negative controls are appropriate for the histochemical, immunohistochemical and immunofluorescence stain(s) in this case (if any), except where stated explicitly. The performance characteristics of the stain(s) cited in this report were developed and its performance characteristic determined by the Dermatopathology Laboratory at [facility]. These tests need not be, and therefore are not, approved by the [place] Food and Drug Administration. The tests are used for clinical purposes. 12:12 PM [facility] DERMATOPATHOLOGY LABORATORY Pathology/Cytolog y TISSUE SPECIMEN FROM SKIN / Unknown 03/14/2018 03/15/2018 7:13 AM CDT Marilee Ogden MD LAB - PATHOLOGY/CYT OLOGY ORDERABLES DERMATOPATHOLOGY LABORATORY [facility] - Department of Dermatology [address] [facility], 5th [place] [address], [facility] [phone]
--- OUTSIDE RECORDS SUMMARY | 2024-06-28 05:20 | XMS_ITS | Referral Summary ---
Author Organization [facility] Address [address] [facility] [place] [address] Care Team Providers Care Planer Mill Grader Name Role Phone Unavailable Primary Care Provider Unavailabl e Source Comments [facility],non-owned Affiliates and Associated Physician Practices is amultiple site organization consisting of ambulatory clinics and hospital sitesin [place], [place], [place] and [place]. This disclosure is being madepursuant to the Care Everywhere program and may not contain all information available regarding this patient. Last updated 18.[facility] [employer] Social History Tobacco Use Types Packs/Day Years Used Date Smoking Tobacco: Never Assessed Sex and Gender Information Value Date Recorded Sex Assigned at Not on file Gender Identity Not on file Sexual Orientation Not on file Plan of Treatment Not on file
--- OUTSIDE RECORDS SUMMARY | 2024-06-28 05:20 | XMS_ITS | Encounter Summary ---
Author Organization [facility] Healthcare Address [address] [place] [address] Care Team Providers Care Tub Washer Name Role Phone Lewis Paez MD Primary Care Provider [phone] Addie Meyer MD Unavailable [phone] Unknown, Noticlemente Primary Care Provider Unavail able Addie Meyer MD Primary Care Provider + Encounter Details Date Type Department Care Team (Late st Contact Info) Description 12/27/2018 Telephone [facility] Advanced Medicine Radiation Oncology [address] [facility] [place] [address] Anastacio Millan CMA Social History Tobacco Use Types Packs/Day Years Used Date Smoking Tobacco: Never Smokeless Tobacco: Never Alcohol Use Standard Drinks/Week Comments Not Currently 0 (1 standard drink = 0.6 oz pur e alcohol) Comments Unknown Sex and Gender Information Value Date Recorded Sex Assigned at Not on file Legal Sex Female 6:02 AM MANAGER COSMETIC Gender Identity Not on file Sexual Orientation Not on file documented as of this encounter Plan of Treatment Not on file documented as of this encounter Visit Diagnoses Not on filedocumented in this encounter Care Teams Tub Washer Relationship Specialty Start Date End Date Lewis Paez MD [address] [place] [address] PCP - General 03/10/17 11/19/20 Unknown, Pamela PCP - General 07/20/22 05/10/23 Addie Meyer MD [address] [place] [address] PCP - General Gynecology 05/11/23 Addie Meyer MD [address] [place] [address] Gynecology 01/16/20 documented as of this encounter
--- OUTSIDE RECORDS SUMMARY | 2024-06-28 05:20 | XMS_ITS | Clinical Summary ---
Author Organization [facility] Address [address] [place] [address]. [place] [address] [place] [address] Care Team Providers Care Fifth Hand Name Role Phone Hernan Hudson MD Primary Care Provider [phone] Allergies No known active allergies Medications losartan [...] on file Legal Sex Female 2:54 PM REGIONAL DIRECTOR OF ADMISSIONS Gender Identity Not on file Sexual Orientation [...] to complete this [place] [address] [facility] MEDICARE Care Teams Fifth Hand Relationship Specialty Start Date End Date Hernan Hudson MD [address] [place] [address] PCP - General FAMILY PRACTICE 06/16/23
--- OUTSIDE RECORDS SUMMARY | 2024-06-28 05:20 | XMS_ITS | Clinical Summary ---
Author Organization [facility] Address [address] [place] [address] Care Team Providers Care Tile Mechanic Helper Name Role Phone Addie Meyer MD Unavailable [phone] Addie Meyer MD Primary Care Provider + [...] mouth daily 2 019 Active vit C-vit H-pwtkou-vrpp -lutein (PRESERVISION LUTEIN) 226 mg-200 unit -5 [...] on file Legal Sex Female 6:02 AM PLASTIC SHEETS FINISHING SUPERVISOR Gender Identity Not on file Sexual Orientation [...] Read Routine (OP Routine) 07/21/2023 8:50 AM PLASTIC SHEETS FINISHING SUPERVISOR Screening mammogram, encounter for from Last 3 Months or Most Recently Relevant to Health Maintenance Results * Screening Mammogram Bilateral W Jose (07/21/2023 8:50 AM PLASTIC SHEETS FINISHING SUPERVISOR) Anatomical Region Laterality Modality Breast Bilateral Mammography Narrative 07/21/2023 4:08 PM PLASTIC SHEETS FINISHING SUPERVISOR Mammogram Technique: Bilateral Digital Breast Tomosynthesis, Bilateral C-view 2D Screening mammogram. ??Views obtained: ??bilateral craniocaudal and bilateral mediolateral oblique. ??Computer Aided Detection was performed. Mammogram Findings: The present examination has been compared to prior imaging studies performed at [facility] on 03/27/2020 and 07/18/2021, and at [facility] on 07/20/2022. The breasts are [...] compared to prior imaging studies performed at [facility] on 03/27/2020 and 07/18/2021, and at [facility] on 07/20/2022. The breasts are [...] Relevant to Health Maintenance [place] [address] MEDICARE COMMERCIAL GENERIC MEDICARE [facility] SENIOR SUPPLEMENT COMMERCIAL GENERIC MEDICARE [facility] Care Teams Tile Mechanic Helper Relationship Specialty Start Date End Date Addie Meyer MD [address] [place] [address] PCP - General Gynecology 05/11/23 Addie Meyer MD [address] [place] [address] Gynecology 01/16/20
--- OUTSIDE RECORDS SUMMARY | 2024-06-28 05:20 | XMS_ITS | Referral Summary ---
Author Organization [facility] Address [address] [place] [address] Care Team Providers Care Macerator Operator Name Role Phone Addie Meyer MD Unavailable [...] mouth daily 2 019 Active vit C-vit T-kfrmdi-ryws -lutein (PRESERVISION LUTEIN) 226 mg-200 unit -5 [...] on file Legal Sex Female 6:02 AM COLLECTIONS DIRECTOR Gender Identity Not on file Sexual Orientation [...] Read Routine (OP Routine) 07/21/2023 8:50 AM COLLECTIONS DIRECTOR Screening mammogram, encounter for from Last 3 Months or Most Recently Relevant to Health Maintenance Results * Screening Mammogram Bilateral W Jose (07/21/2023 8:50 AM COLLECTIONS DIRECTOR) Anatomical Region Laterality Modality Breast Bilateral Mammography Narrative 07/21/2023 4:08 PM COLLECTIONS DIRECTOR Mammogram Technique: Bilateral Digital Breast Tomosynthesis, Bilateral C-view 2D Screening mammogram. ??Views obtained: ??bilateral craniocaudal and bilateral mediolateral oblique. ??Computer Aided Detection was performed. Mammogram Findings: The present examination has been compared to prior imaging studies performed at [facility] on 03/27/2020 and 07/18/2021, and at [facility] on 07/20/2022. The breasts are [...] compared to prior imaging studies performed at [facility] on 03/27/2020 and 07/18/2021, and at [facility] on 07/20/2022. The breasts are [...] SENIOR SUPPLEMENT COMMERCIAL [place] [address] [place] [address] MEDICARE [facility] Care Teams Macerator Operator Relationship Specialty Start Date End Date Addie Meyer MD [address] [address] PCP - General Gynecology 05/11/23 Addie Meyer MD [address] [address] Gynecology 01/16/20
[2024-06-28 05:55] VITALS: BP 160/87; PULSE 83; RESP 17; O2SAT 97
[2024-06-28] MEDS: SULFAMETHOXAZOLE/TRIMETHOPRIM 800/160 MG DS TABLET 1 TAB PO (05:55)
--- NOTE | 2024-06-28 07:02 | ED_ITS ---
HPI - Abdominal Pain General Chief Complaint: Abdominal Pain Stated Complaint: Groin Pain Time Seen by Provider: 06/28/24 04:53 History of Present Illness HPI narrative: 73-year-old female with a past medical history including hypertension, hyperlipidemia, GERD presenting to the emergency department for evaluation of left-sided lower groin area pain. She states that it started last night and has slowly diet down and almost resolved upon my initial assessment. Took 2 Tylenol prior to bed. Denies any injury or trauma. No masses or hernias. Denies any urinary complaints. No nausea, vomiting, back pain. Was otherwise in her normal state of health Related Data Home Medications ?Medication ?Instructions ?Recorded ?Confirmed ?Last Taken ?Type flaxseed oil 1,000 mg capsule 1,000 mg PO DAILY 02/28/20 01/05/24 Unknown History valacyclovir 500 mg tablet 500 mg PO DAILY 02/28/20 01/05/24 Unknown History calcium carbonate (Calcium 600) 600 mg PO BID 10/04/20 01/05/24 Unknown History dsmyhefu-fal-gvytx acid 0.4 1 tablet PO DAILY 08/05/22 01/05/24 Unknown History mg-lycopene 300 mcg-lutein 250 mcg tablet (Centrum Silver) gabapentin 100 mg capsule 100 mg PO TID 10/13/23 01/05/24 Unknown History hydrochlorothiazide 12.5 mg capsule 12.5 mg PO .prn 10/13/23 01/05/24 Unknown History vit C 250 mg-vit E 90 mg-zinc 40 1 tablet PO BID 01/05/24 01/05/24 Unknown History mg-copper 1 lv-qcncpk-qcpjer capsule (PreserVision AREDS-2) Allergies Allergy/AdvReac Type Severity Reaction Status Date / Time No Known Allergies Allergy Verified 01/05/24 08:48 Review of Systems 2 Review of Systems: As [facility] Past Medical History Medical History Fine tremor Dyslipidemia Essential hypertension Acid reflux Social History Social History Smoking status: Never smoker Second hand tobacco smoke exposure: No Alcohol intake: never Substance use: never Substance use type: does not use Do You Feel Safe in your Home?: Yes Lack of Transportation: No Lack of Food: Never True Current Housing: I Have Housing Concerned About Future Housing: No Difficulty Paying Gas/Electric Bills: No Difficulty Paying for Meds: No Currently Unemployed: No Education: Bachelor's Degree Living arrangements: with family Occupation/Education: retired Gender identity (if verbalized by the patient): Female Sexual Orientation (if Verbalized by the Patient): Straight or Heterosexual Spiritual care concerns: No Agree to blood products: Yes Exam 2 Narrative: GENERAL: [Well-appearing, well-nourished, and in no acute distress.] HEAD: [Normocephalic, atraumatic.] EYES: [PERRLA and EOMI.] ENT: Nares clear, no rhinorrhea or epistaxis. Mucous membranes moist. NECK: Supple. CHEST: [Clear to auscultation. No respiratory distress.] HEART: [Regular rate and rhythm]. No murmur heard. [Normal peripheral pulses.] ABDOMEN: [Soft, nondistended], [nontender], [No rigidity or guarding] no palpable masses or hernias in the inguinal canal, no reproducible pain or tenderness in the inguinal region or any kind of overlying skin changes. EXTREMITIES: Normal range of motion. [No edema.] SKIN: Warm, dry, no rash. NEURO: [No focal deficits]. Alert and oriented [x3.] PSYCH: [Normal mood and affect.] Course Vital Signs Vital signs: Vital Signs Temperature 36.7 C 06/28/24 00:16 Pulse Rate 86 06/28/24 00:16 Respiratory Rate 16 06/28/24 00:16 Blood Pressure 149/63 H 06/28/24 00:16 Pulse Oximetry 97 06/28/24 00:16 Oxygen Delivery Room Air 06/28/24 00:16 Temperature 36.7 C 06/28/24 00:16 Pulse Rate 83 06/28/24 05:55 Respiratory Rate 17 06/28/24 05:55 Blood Pressure 160/87 H 06/28/24 05:55 Pulse Oximetry 97 06/28/24 05:55 Oxygen Delivery Room Air 06/28/24 00:16 MDM - Abdominal Pain MDM Narrative Medical decision making narrative: 73-year-old female presenting to the emergency department for evaluation of left-sided low groin pain. Denies any hernias or masses. No abdominal pain, nausea, vomiting, diarrhea constipation. Denies any urinary complaints. She otherwise is well appearing, not any acute distress. Normal vital signs without any significant hypertension, tachycardia, fever hypoxia or tachypnea. Abdominal examination is very reassuring. Laboratory assessments were drawn including CBC, CMP, urinalysis and urine culture, COVID swab, lipase. Patient's pain is almost non-existent at this time and she took Tylenol prior to bed. Workup shows no leukocytosis or anemia. Electrolytes within normal limits, normal renal and hepatic function panel. Normal lipase urinalysis shows white blood cells, bacteria and leukocyte esterase consistent with UTI. She was given a dose of Bactrim as this could be the source for symptomatology. She will be sent home with a prescription and encouraged to follow-up with regular doctor or return if she has any new or developing concerns. Patient was stable and safe for discharge. Medical Records Attestation: I reviewed the patient's medical records. Lab Data Attestation: I reviewed the patient's lab results. 06/28/24 00:23 06/28/24 00:23 Labs: Lab Results 06/28/24 Range/Units 00:23 WBC 4.9 (4.5-10.0) K/mm3 RBC 4.15 L (4.2-5.4) M/mm3 Hgb 12.9 (12.0-15.0) g/dL Hct 38.5 (37.0-47.0) % MCV 92.8 (80-100) fl MCH 31.1 (26-34) pg MCHC 33.5 (32-36) g/dl RDW 13.2 (11.5-14.5) % Plt Count 179 (150-375) k/mm3 MPV 8.9 (7.4-10.4) fl Immature Gran % (Auto) 0.4 (0-0.5) % Neut % (Auto) 55.1 (45.5-73.1) % Lymph % (Auto) 31.6 (18.3-44.2) % [place] % (Auto) 10.5 H (2.6-8.5) % Eos % (Auto) 1.8 (0-4.4) % Baso % (Auto) 0.6 (0.2-1.2) % Lymph # (Auto) 1.56 (0.9-3.2) K/mm3 [place] # (Auto) 0.5 (0.1-0.6) K/mm3 Eos # (Auto) 0.1 (0-0.3) K/mm3 Baso # (Auto) 0.0 (0.0-0.1) K/mm3 Abs Immat Gran (auto) 0.02 (0.00-0.031) K/mm3 Absolute Neuts (auto) 2.7 (1.3-6.7) K/mm3 Absolute Nucleated RBC 0.000 (0.0-0.012) K/mm3 Nucleated RBC % 0.0 (0.0-0.2) % Sodium 137 (137-145) mmol/L Potassium 3.8 (3.4-5.0) mmol/L Chloride 104 (98-107) mmol/L Carbon Dioxide 24 (22-30) mmol/L Anion Gap 9 (4-12) mmol/L BUN 17 (7-17) mg/dL Creatinine 0.95 (0.7-1.0) mg/dL Estim Creat Clear Calc 49 ml/min Estimated GFR 58 L (59 - ) Glucose 104 (65-110) mg/dL Calcium 9.0 (8.4-10.2) mg/dL Total Bilirubin 0.5 (0.2-1.3) mg/dL AST 26 (14-36) U/L ALT 22 (6-35) U/L Alkaline Phosphatase 101 (38-126) U/L Total Protein 7.0 (6.3-8.2) g/dL Albumin 4.1 (3.5-5.1) g/dL Lipase 256 (23-300) U/L Urine Color Dark yellow (Yellow) Urine Appearance Turbid H (Clear) Urine pH 5.5 (5.0-9.0) Ur Specific [place] 1.019 (1.001-1.035) Urine Protein 1+ H (Negative) mg/dL Urine Glucose (UA) Negative (Negative) mg/dL Urine Ketones Trace H (Negative) mg/dL Ur Blood (Man) Non-hemolyzed trace H (Negative) Urine Nitrate Negative (Negative) Urine Bilirubin Negative (Negative) Urine Urobilinogen 0.2 (<2.0) mg/dL Leukocyte Esterase Rfl 3+ H (Negative) NOHEMI/UL Urine RBC 3-5 H (0-2) /hpf Urine WBC >100 H (0-3) /hpf Ur Squamous Epith Cells Occasional (Few) /hpf Urine Bacteria 1+ H /hpf Urine Casts 3-5 Influenza A (RT-PCR) Negative (Negative) Influenza B (RT-PCR) Negative (Negative) RSV (RT-PCR) Negative (Negative) SARS-CoV-2 RNA (RT-PCR) Negative (Negative) Discharge Plan Discharge Clinical Impression: Urinary tract infection, Groin pain Patient Disposition: Home, Self-Care Condition: Stable Instructions: Antibiotic Form, Urinary Tract Infection in Older Adults (ED) Additional Instructions: Your workup shows a pretty significant urinary tract infection, otherwise your laboratory studies are all very reassuring. We will send you home with a course of antibiotics. He can take Tylenol and ibuprofen for any pain. If he develops any intractable pain, fever started developing without response to Tylenol, nauseousness, vomiting or any other acute concerns you can always get repeat evaluation at that time. Follow-up with your regular doctor. Patient Language: Omani Prescriptions: New sulfamethoxazole-trimethoprim [Bactrim DS] 800-160 mg tablet 1 tablet PO Q12H Qty: 14 0RF No Action valacyclovir 500 mg tablet 500 mg PO DAILY flaxseed oil 1,000 mg capsule 1,000 mg PO DAILY Rx Instructions: administer with a meal calcium carbonate [Calcium 600] 600 mg calcium (1,500 mg) tablet 600 mg PO BID Centrum Silver 0.4 mg-300 mcg- 250 mcg tablet 1 tablet PO DAILY PreserVision AREDS-2 250-90-40-1 mg capsule 1 tablet PO BID omeprazole 40 mg capsule,delayed release(DR/EC) 40 mg PO DAILY Qty: 90 1RF trazodone 50 mg tablet 50 mg PO QHS PRN (Reason: insomnia) Qty: 30 2RF hydrochlorothiazide 12.5 mg capsule 12.5 mg PO .prn gabapentin 100 mg capsule 100 mg PO TID rosuvastatin 5 mg tablet See Rx Instructions .ROUTE .COMPLEX Qty: 90 1RF Dose Instruction: TAKE 1 TABLET BY MOUTH DAILY Rx Instructions: TAKE 1 TABLET BY MOUTH DAILY losartan 25 mg tablet See Rx Instructions .ROUTE .COMPLEX Qty: 90 1RF Dose Instruction: TAKE 1 TABLET BY MOUTH DAILY Rx Instructions: TAKE 1 TABLET BY MOUTH DAILY Follow-up/Referrals: Shasta Butler APRN [Primary Care Provider] - Time of Disposition: 05:50
== END 2024-06-28 06:00 | disposition home or self-care (01) ==
PROVIDERS: Emergency Provider Student in an Organized Health Care Education/Training Program; PCP Nurse Practitioner Family
DX: N39.0 Urinary tract infection, site not specified (principal); Z20.822 Contact with and (suspected) exposure to COVID-19; I10 Essential (primary) hypertension; E78.5 Hyperlipidemia, unspecified; K21.9 Gastro-esophageal reflux disease without esophagitis; Z79.899 Other long term (current) drug therapy
CPT/HCPCS: 36415; 80053; 81001; 83690; 85025; 87086; 87637; 99283; A9270

== ENCOUNTER 2024-08-21 00:08 | Day surgery (SDC) | payer MEDICARE, SELFPAY ==
[2024-08-10 13:05] VITALS: BMI 30.9
--- OUTSIDE RECORDS SUMMARY | 2024-08-21 00:15 | XMS_ITS | Encounter Summary ---
Author Organization [facility] Healthcare Address [address] [place] [address] Care Team Providers Care Hand Tile Maker Name Role Phone Lewis Paez MD Primary Care Provider [phone] Addie Meyer MD Unavailable Unknown, Noticlemente Primary Care Provider Unavail able Addie Meyer MD Primary Care Provider + Encounter Details Date Type Department Care Team (Late st Contact Info) Description 12/27/2018 Telephone [facility] Advanced Medicine Radiation Oncology [address] [facility] [place] [address] Anastacio Millan CMA Social History Tobacco Use Types Packs/Day Years Used Date Smoking Tobacco: Never Smokeless Tobacco: Never Alcohol Use Standard Drinks/Week Comments Not Currently 0 (1 standard drink = 0.6 oz pur e alcohol) Comments Unknown Sex and Gender Information Value Date Recorded Sex Assigned at Not on file Legal Sex Female 6:02 AM CEMENT 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 Gender Identity Not on file Sexual Orientation Not on file documented as of this encounter Plan of Treatment Not on file documented as of this encounter Visit Diagnoses Not on filedocumented in this encounter Care Teams Hand Tile Maker Relationship Specialty Start Date End Date Lewis Paez MD [address] [place] [id number] PCP - General 03/10/17 11/19/20 Unknown, Pamela PCP - General 07/20/22 05/10/23 Addie Meyer MD [address] [place] [address] PCP - General Gynecology 05/11/23 Addie Meyer MD [address] [place] [address] Gynecology 01/16/20 documented as of this encounter
--- OUTSIDE RECORDS SUMMARY | 2024-08-21 00:15 | XMS_ITS | Referral Summary ---
Author Organization [facility] Address [address] [place] [address] Care Team Providers Care Sewing Machine Attachment Tester Name Role Phone Addie Meyer MD Unavailable [phone] Addie Meyer MD Primary Care Provider + Encounters Date Type Department Care Team Description 08/16/2024 8:56 AM CDT - 08/16/2024 11:59 PM CDT Hospital Encounter [facility] Advanced Medicine Breast Imaging [facility] Advanced Medicine ([facility]) [address] [place] [address] Abnormality of right breast on screening mammogram Discharge Disposition: Discharge to home or self care 07/24/2024 8:51 AM HOOKER ON - 07/24/2024 11:59 PM [facility] Hospital Encounter [facility] Advanced Medicine[address] [place] [address] Screening mammogram, encounter for Discharge Disposition: Discharge to home or self care from Last 3 Months Allergies No known active allergies Medications calcium-vitam [...] (500 mg total) by mouth daily 2 Active vit C-vit W-vuwpqi-gnei -lutein (PRESERVISION LUTEIN) 226 mg-200 unit -5 [...] (two) times a day Every 8 weeks 022 Active Active Problems Problem Noted Date Diagnosed Date Malignant neoplasm of upper- outer quadrant of left female breast 11/22/2012 Immunizations Immunization Administration Dates Next Due Influenza, Quadrivalent, Hig [...] on file Legal Sex Female 6:02 AM HOOKER ON Gender Identity Not on file Sexual Orientation Not on file Last Filed Vital Signs Vital Sign Reading Time Taken Comments Blood Pressure 122/73 11/20/2022 8:26 AM CDT Pulse 96 11/20/2022 8:26 AM CDT Temperature 36.4 C (97.5 F) 11/20/2022 8:26 AM CDT Respiratory Rate 16 11/20/2022 8:26 AM CDT Oxygen Saturation 92% 11/20/2022 8:26 AM CDT Inhaled Oxygen Concentration - - Weight 79.4 kg (175 lb) 03/07/2024 4:19 PM CDT Height 165.1 cm (5' 5 ) 03/07/2024 4:19 PM CDT Body Mass Index 29.12 03/07/2024 4:19 PM CDT Plan of Treatment Not on file Procedures Procedure Name Priority Date/Time Associated Diagnosis Comments DIAGNOSTIC MAMMOGRAM LEFT W JOSE Routine 08/16/2024 9:33 AM CDT Abnormality of right breast on screening mammogram SCREENING MAMMOGRAM BILATERAL W JOSE Schedule Routine, Read Routine (OP Routine) 07/24/2024 9:05 AM HOOKER ON Screening mammogram, encounter for from Last 3 Months Results * Diagnostic Mammogram Left W Jose (08/16/2024 9:33 AM CDT) Anatomical Region Laterality Modality Breast Left Mammography 08/16/2024 9:39 AM CDT Impressions 08/16/2024 10:06 AM CDT Stable changes of breast conservation therapy without mammographic evidence of malignancy in the LEFT breast. OVERALL FINAL ASSESSMENT: BI-RADS Category 2: Benign. RECOMMENDATION: Annual screening mammography is recommended. Dr. Saleem discussed the above findings and recommendations with the patient, who expressed her understanding of the management plan. Dictated by: Chhaya Saleem M.D. The radiology attending physician has personally reviewed this study, and had reviewed and/or edited this written report and agrees with it. Electronically signed by: Edith Sin M.D. Narrative 08/16/2024 10:06 AM CDT EXAMINATION: LEFT UNILATERAL DIGITAL DIAGNOSTIC MAMMOGRAM AND DIGITAL BREAST TOMOSYNTHESIS HISTORY: 74-year-old woman called back for an asymmetry in the posterior inner LEFT breast CC view. She has history of LEFT breast conservation therapy in 2012 for invasive ductal carcinoma. Of note, the screen detected finding on 07/24/2024 is in the LEFT breast (an addendum to the screening mammogram report to correct laterality will be issued by that interpreting radiologist). COMPARISON: Prior mammograms, most recently 07/24/2024. Breast MRI 03/07/2024. TECHNIQUE: Full field digital mammographic views of the LEFT breast were performed, including computer aided detection (CAD) and digital breast tomosynthesis (DBT). BREAST PARENCHYMAL COMPOSITION: The breasts are heterogeneously dense, which may obscure small masses. MAMMOGRAM FINDINGS: Stable changes of breast conservation therapy without suspicious abnormality in the LEFT breast. A questioned asymmetry in the posterior inner LEFT breast effaces on additional views, consistent with superimposition of normal breast tissue. Procedure Note Edith Sin MD - 08/16/2024 EXAMINATION: LEFT UNILATERAL DIGITAL DIAGNOSTIC MAMMOGRAM AND DIGITAL BREAST TOMOSYNTHESIS HISTORY: 74-year-old woman called back for an asymmetry in the posterior inner LEFT breast CC view. She has history of LEFT breast conservation therapy in 2012 for invasive ductal carcinoma. Of note, the screen detected finding on 07/24/2024 is in the LEFT breast (an addendum to the screening mammogram report to correct laterality will be issued by that interpreting radiologist). COMPARISON: Prior mammograms, most recently 07/24/2024. Breast MRI 03/07/2024. TECHNIQUE: Full field digital mammographic views of the LEFT breast were performed, including computer aided detection (CAD) and digital breast tomosynthesis (DBT). BREAST PARENCHYMAL COMPOSITION: The breasts are heterogeneously dense, which may obscure small masses. MAMMOGRAM FINDINGS: Stable changes of breast conservation therapy without suspicious abnormality in the LEFT breast. A questioned asymmetry in the posterior inner LEFT breast effaces on additional views, consistent with superimposition of normal breast tissue. IMPRESSION: Stable changes of breast conservation therapy without mammographic evidence of malignancy in the LEFT breast. OVERALL FINAL ASSESSMENT: BI-RADS Category 2: Benign. RECOMMENDATION: Annual screening mammography is recommended. Dr. Saleem discussed the above findings and recommendations with the patient, who expressed her understanding of the management plan. Dictated by: Chhaya Saleem M.D. The radiology attending physician has personally reviewed this study, and had reviewed and/or edited this written report and agrees with it. Electronically signed by: Edith Sin M.D. us Addie Meyer MD IMG MAMMO PROCEDURES Fin al Result * Screening Mammogram Bilateral W Jose (07/24/2024 9:05 AM HOOKER ON) Anatomical Region Laterality Modality Breast Bilateral Mammography Narrative 07/24/2024 2:06 PM HOOKER ON Mammogram Technique: Bilateral Digital Breast Tomosynthesis, Bilateral C-view 2D Screening mammogram. Views obtained: bilateral craniocaudal and bilateral mediolateral oblique. Computer Aided Detection was performed. Mammogram Findings: The present examination has been compared to prior imaging studies performed at [facility] on 07/20/2022 and 07/21/2023, and at [facility] on 07/18/2021. The breasts are heterogeneously dense, which may obscure small masses. There is asymmetry in the posterior inner breast on the craniocaudal view of the right breast. There is no suspicious abnormality in the left breast. Impression: Asymmetry in the right breast requires additional evaluation. Diagnostic mammogram and possible ultrasound of the right breast are recommended at this time. OVERALL FINAL ASSESSMENT: BI-RADS CATEGORY 0: Incomplete: Need additional imaging evaluation. Procedure Note Krystal Vu MD - 07/24/2024 Mammogram Technique: Bilateral Digital Breast Tomosynthesis, Bilateral C-view 2D Screening mammogram. Views obtained: bilateral craniocaudal and bilateral mediolateral oblique. Computer Aided Detection was performed. Mammogram Findings: The present examination has been compared to prior imaging studies performed at [facility] on 07/20/2022 and 07/21/2023, and at [facility] on 07/18/2021. The breasts are heterogeneously dense, which may obscure small masses. There is asymmetry in the posterior inner breast on the craniocaudalview of the right breast. There is no suspicious abnormality in the left breast. Impression: Asymmetry in the right breast requires additional evaluation. Diagnostic mammogram and possible ultrasound of the right breast are recommended at this time. OVERALL FINAL ASSESSMENT: BI-RADS CATEGORY 0: Incomplete: Need additional imaging evaluation. us Self Screening Mammogram IMG MAMMO PROCEDURES Fi nal Result from Last 3 Months Insurance MEDICARE COMMERCIAL GENERIC MEDICARE [employer] SENIOR SUPPLEMENT COMMERCIAL GENER[place] [address] MEDICARE [facility] Care Teams Sewing Machine Attachment Tester Relationship Specialty Start Date End Date Addie Meyer MD [address] [address] PCP - General Gynecology 05/11/23 Addie Meyer MD [address] [address] Gynecology 01/16/20
--- OUTSIDE RECORDS SUMMARY | 2024-08-21 00:15 | XMS_ITS | Clinical Summary ---
Author Organization [facility] Address [address] [place] [address] Care Team Providers Care Slabber Name Role Phone Unavailable Primary Care Provider Unavailabl e Source Comments [facility] [email or web address],non-owned Affiliates and Associated Physician Practices is amultiple site organization consisting of ambulatory clinics and hospital sitesin [place], [place], [place] and [place]. This disclosure is being madepursuant to the Care Everywhere program and may not contain all information available regarding this patient. Last updated 18.[facility] [email or web address] Social History Tobacco Use Types Packs/Day Years [...] LIPID TESTING 1950 MAMMOGRAM 1950 MEDICARE AWV 12 MONTHS 1950 HEPATITIS C SCREENING 07/23/1969 [...] to complete this topic MENINGOCOCCAL (Group B) VACC INE SHARED DECISION-MAKING Aged Out No longer eligibl e based on patient's age to complete this topic MENINGOCOCCAL GROUPS A/C/Y/W VACCINE Aged Out No longer eligible b ased on patient's [place] [address]
--- OUTSIDE RECORDS SUMMARY | 2024-08-21 00:15 | XMS_ITS | Clinical Summary ---
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
--- OUTSIDE RECORDS SUMMARY | 2024-08-21 00:15 | XMS_ITS | Clinical Summary ---
Author Organization [facility] Address [address] [place] [address] Care Team Providers Care Evaluation Specialist Name Role Phone Addie Meyer MD Unavailable [phone] Addie Meyer MD Primary Care Provider + [...] mouth daily 2 019 Active vit C-vit Z-hdknsm-yahx -lutein (PRESERVISION LUTEIN) 226 mg-200 unit -5 [...] outer quadrant of left female breast 11/22/2012 Encounters Date Type Department Care Team Description 08/16/2024 8:56 AM CDT - 08/16/2024 11:59 PM CDT Hospital Encounter [facility] Advanced Medicine Breast Imaging [facility] Advanced Medicine ([facility]) [address] [place] [address] Abnormality of right breast on screening mammogram Discharge Disposition: Discharge to home or self care 07/24/2024 8:51 AM MANAGER RENTAL - 07/24/2024 11:59 PM MANAGER RENTAL Hospital Encounter [facility] Medicine[address] [place] [address] Screening mammogram, encounter for Discharge Disposition: Discharge to home or self care from Last 3 Months Immunizations Immunization Administration Dates Next Due Influenza, [...] file Legal Sex Female 6:02 AM MANAGER RENTAL Gender Identity Not on file Sexual Orientation [...] Pneumococcal vaccine 65+ (3 of 3 - PCV20 or PCV21) 04/05/2022 04/05/2017, 03/31/2016 Covid-19 Vaccine (4 - 2023-2 5 season) 2024 03/27/2021, 07/30/2020, 06/27/2020 Influenza Vaccine (#1) 2024 , 02/29/2020, 03/22/2019, Additional history exists Breast Cancer Screening-Mammogram 07/24/2025 07/24/2024, 07/21/2023, 07/21/2023, Additional history exists Procedures Procedure Name Priority Date/Time Associated Diagnosis Comments DIAGNOSTIC MAMMOGRAM LEFT W JOSE Routine 08/16/2024 9:33 AM CDT Abnormality of right breast on screening mammogram SCREENING MAMMOGRAM BILATERAL W JOSE Schedule Routine, Read Routine (OP Routine) 07/24/2024 9:05 AM MANAGER RENTAL Screening mammogram, encounter for from Last 3 [...] history of LEFT breast conservation therapy in 2013 for invasive ductal carcinoma. Of note, the [...] Mammogram Bilateral W Jose (07/24/2024 9:05 AM MANAGER RENTAL) Anatomical Region Laterality Modality Breast Bilateral Mammography Narrative 07/24/2024 2:06 PM MANAGER RENTAL Mammogram Technique: Bilateral Digital Breast Tomosynthesis, Bilateral C-view 2D Screening mammogram. Views obtained: bilateral craniocaudal and bilateral mediolateral oblique. Computer Aided Detection was performed. Mammogram Findings: The present examination has been compared to prior imaging studies performed at [facility] on 07/20/2022 and 07/21/2023, and at [facility] on 07/18/2021. The breasts are heterogeneously dense, [...] compared to prior imaging studies performed at [facility] on 07/20/2022 and 07/21/2023, and at [facility] on 07/18/2021. The breasts are heterogeneously dense, [...] nal Result from Last 3 [place] [address] MEDICARE COMMERCIAL GENERIC MEDICARE [facility] SENIOR SUPPLEMENT COMMERCIAL GENERIC MEDICARE [facility] Care Teams Evaluation Specialist Relationship Specialty Start Date End Date Addie Meyer MD [address] [place] [address] PCP - General Gynecology 05/11/23 Addie Meyer MD [address] [place] [address] Gynecology 01/16/20
--- OUTSIDE RECORDS SUMMARY | 2024-08-21 00:15 | XMS_ITS | Encounter Summary ---
Author Organization [facility] Address [address] [place] [address] Care Team Providers Care Hoop Machine Operator Name Role Phone Unavailable Primary Care Provider Unavailabl e Encounter Details Date Type Department Care Team (Late st Contact Info) Description 03/15/2018 Lab Requisition [facility] Care DermPath Lab [address] [facility] [place] [address] Marilee Ogden MD [address] [facility] [address] [place] [address] Social History Tobacco Use Types Packs/Day Years [...] 12:00 AM CDT) Case Report Dermatopathology Report Case: [id number] Authorizing Provider: Marilee Ogden MD Collected: 03/14/2018 12:00 AM Pathologist: Anival Samson MD Received: 03/15/2018 07:13 AM Specimen: Skin, left song 8 12:12 PM CDT DERMATOPATHOLOGY LABORATORY Clinical History DF. Cuts shaving. 8 12:12 PM CDT DERMATOPATHOLOGY LABORATORY Gross Description Specimen A: Received is one formalin filled container labeled with the patient's name and designated left song. The specimen consists of a shave measuring [id number]. Jar [address]. [facility] performed the technical component only. 8 12:12 PM CDT DERMATOPATHOLOGY LABORATORY Embedded Images 8 12:12 PM CDT DERMATOPATHOLOGY LABORATORY DISCLAIMER An external and internal positive and negative controls are appropriate for the histochemical, immunohistochemical and immunofluorescence stain(s) in this case (if any), except where stated explicitly. The performance characteristics of the stain(s) cited in this report were developed and its performance characteristic determined by the Dermatopathology Laboratory at [facility]. These tests need not be, and therefore are not, approved by the [place] Food and Drug Administration. The tests are used for clinical purposes. 8 12:12 PM CDT DERMATOPATHOLOGY LABORATORY Pathology/Cytolog y TISSUE SPECIMEN FROM SKIN / Unknown 03/14/2018 03/15/2018 7:13 AM CDT Marilee Ogden MD LAB - PATHOLOGY/CYT OLOGY ORDERABLES DERMATOPATHOLOGY LABORATORY [facility] - Department of Dermatology [facility] [facility]th [place] [address], [facility] [phone] documented in this encounter Visit Diagnoses Not on filedocumented in this encounter
[2024-08-21 07:33] VITALS: BP 129/93; PULSE 99; RESP 18; TEMP 36.6; O2SAT 99
[2024-08-21] MEDS: LACTATED RINGERS 1,000 ML 150 ML IV CONT (07:40)
--- NOTE | 2024-08-21 08:09 | WPDANESEPPF ---
Anes - Initial Pre Proc Eval Procedure: Operation Date: 08/21/24 08:30 Proposed Procedures p Screening Colonoscopy - Remington Burk MD Date/Time: 08/21/24 08:09 Surgeon: Remington Burk MD Pre Op Diagnosis: Screening Patient Data Age: 74 Gender: F Height: 1.63 m Weight: 82 kg Last Vital Signs Temp 98 F 08/21/24 07:33 Pulse 99 08/21/24 07:33 Resp 18 08/21/24 07:33 BP 129/93 H 08/21/24 07:33 Pulse Ox 99 08/21/24 07:33 O2 Del Method Room Air 08/21/24 07:33 Allergies Allergy/AdvReac Type Severity Reaction Status Date / Time No Known Allergies Allergy Verified 08/21/24 07:31 Home Medications ?Medication ?Instructions ?Recorded ?Confirmed ?Type flaxseed oil 1,000 mg capsule 1,000 mg PO DAILY 02/28/20 08/21/24 History valacyclovir 500 mg tablet 500 mg PO DAILY 02/28/20 08/21/24 History calcium carbonate (Calcium 600) 600 mg PO BID 10/04/20 08/21/24 History fxqunlnn-xpc-mfbye acid 0.4 1 tablet PO DAILY 08/05/22 08/10/24 History mg-lycopene 300 mcg-lutein 250 mcg tablet (Centrum Silver) hydrochlorothiazide 12.5 mg capsule 12.5 mg PO .prn 10/13/23 08/10/24 History vit C 250 mg-vit E 90 mg-zinc 40 1 tablet PO BID 01/05/24 08/21/24 History mg-copper 1 qj-hrpfmn-vncdic capsule (PreserVision AREDS-2) losartan 25 mg tablet See Rx Instructions .Route 07/10/24 08/21/24 Rx .COMPLEX #90 tabs omeprazole 40 mg capsule,delayed 40 mg PO DAILY #90 caps 07/10/24 08/21/24 Rx release rosuvastatin 5 mg tablet See Rx Instructions .Route 07/10/24 08/21/24 Rx .COMPLEX #90 tabs cholecalciferol (vitamin D3) 25 25 mcg PO DAILY 08/10/24 08/21/24 History mcg (1,000 unit) capsule (Vitamin D3) Patient hx anesthesia problems: none Family hx anesthesia problems: none Results Review: All pre-operative results and documents have been reviewed as part of the pre-operative evaluation. [facility] Past Medical History Medical History Fine tremor Dyslipidemia Essential hypertension Acid reflux Social History Social History Smoking status: Never smoker Second hand tobacco smoke exposure: No Alcohol intake: never Substance use: never Substance use type: does not use Do You Feel Safe in your Home?: Yes Lack of Transportation: No Lack of Food: Never True Current Housing: I Have Housing Concerned About Future Housing: No Difficulty Paying Gas/Electric Bills: No Difficulty Paying for Meds: No Currently Unemployed: No Education: Bachelor's Degree Living arrangements: with family Additional living arrangements comments: Occupation/Education: retired Gender identity (if verbalized by the patient): Female Sexual Orientation (if Verbalized by the Patient): Straight or Heterosexual Spiritual care concerns: No Agree to blood products: Yes Anes - Eval Final PreProcedure Day of Procedure 08/21/24 08:09 Patient weight: obese Lungs: normal air movement Airway: Mallampati scale class II Neurological: alert and oriented Last oral intake: >/= 8 hours ASA classification: II Emergent: no Anesthetic plan: proceed Anesthesia type and monitoring: general GIVS and standard monitoring Results Review: All pre-operative results and documents have been reviewed as part of the pre-operative evaluation. HTN, hyperlipidemia, active w riding recumbent bike, no cp or sob. Informed Consent: The patient's anesthetic plan and its attendant risks and benefits were discussed with the patient/family/POA. Questions were solicited and answers provided to the satisfaction of the patient/family/POA.
--- NOTE | 2024-08-21 08:24 | PM.HPGS ---
History of Present Illness History of Present Illness Consent: Risks, benefits, and alternatives have been discussed and questions answered. Patient agrees to proceed with procedure. Chief complaint: Screening Narrative: Suzette Muir is a 74 year old female here for screening colonoscopy, last one 10 years ago Review of Systems Review of Systems: All systems reviewed & are unremarkable except as noted in HPI and below PMFSH Past Medical History Medical History (Updated 08/21/24 @ 08:25 by Remington Burk MD) Colon cancer screening Fine tremor Dyslipidemia Essential hypertension Acid reflux Social History Social History Smoking status: Never smoker Second hand tobacco smoke exposure: No Alcohol intake: never Substance use: never Substance use type: does not use Do You Feel Safe in your Home?: Yes Lack of Transportation: No Lack of Food: Never True Current Housing: I Have Housing Concerned About Future Housing: No Difficulty Paying Gas/Electric Bills: No Difficulty Paying for Meds: No Currently Unemployed: No Education: Bachelor's Degree Living arrangements: with family Additional living arrangements comments: Occupation/Education: retired Gender identity (if verbalized by the patient): Female Sexual Orientation (if Verbalized by the Patient): Straight or Heterosexual Spiritual care concerns: No Agree to blood products: Yes Meds Home Medications and Allergies Home Medications ?Medication ?Instructions ?Recorded ?Confirmed ?Type flaxseed oil 1,000 mg capsule 1,000 mg PO DAILY 02/28/20 08/21/24 History valacyclovir 500 mg tablet 500 mg PO DAILY 02/28/20 08/21/24 History calcium carbonate (Calcium 600) 600 mg PO BID 10/04/20 08/21/24 History [id number] acid 0.4 1 tablet PO DAILY 08/05/22 08/10/24 History mg-lycopene 300 mcg-lutein 250 mcg tablet (Centrum Silver) hydrochlorothiazide 12.5 mg capsule 12.5 mg PO .prn 10/13/23 08/10/24 History vit C 250 mg-vit E 90 mg-zinc 40 1 tablet PO BID 01/05/24 08/21/24 History mg-copper 1 gp-unmagw-soumoh capsule (PreserVision AREDS-2) losartan 25 mg tablet See Rx Instructions .Route 07/10/24 08/21/24 Rx .COMPLEX #90 tabs omeprazole 40 mg capsule,delayed 40 mg PO DAILY #90 caps 07/10/24 08/21/24 Rx release rosuvastatin 5 mg tablet See Rx Instructions .Route 07/10/24 08/21/24 Rx .COMPLEX #90 tabs cholecalciferol (vitamin D3) 25 25 mcg PO DAILY 08/10/24 08/21/24 History mcg (1,000 unit) capsule (Vitamin D3) Allergies Allergy/AdvReac Type Severity Reaction Status Date / Time No Known Allergies Allergy Verified 08/21/24 07:31 Vital Signs Vital Signs - 24 hr 08/21/24 07:33 Temperature 98 F Pulse Rate 99 Respiratory Rate 18 Blood Pressure 129/93 H Pulse Oximetry 99 Oxygen Delivery Room Air Exam Const: General: comfortable and no acute distress HENMT: Face/Nose/Sinus: Normal nares present Eyes: General: appearance normal, both eyes and all related structures Neck: Neck: no JVD Resp: Auscultation: clear to auscultation bilaterally Cardio: Rate: regular rate Rhythm: regular rhythm GI: Inspection: non-distended GI Palp: Yes Soft to palpation Skin: General skin exam: normal color Neuro: General: gait normal Speech: normal speech Extrem: General: normal to inspection Psych: Mental Status: mental status grossly normal Assessment and Plan Assessment and plan (1) Colon cancer screening: Code(s): Z12.11 - Encounter for screening for malignant neoplasm of colon Status: Acute Assessment and Plan: colonoscopy
[2024-08-21 08:46] VITALS: BP 98/51; PULSE 98; RESP 18; O2SAT 98
[2024-08-21 08:56] VITALS: BP 110/50; PULSE 99; RESP 18; O2SAT 99
[2024-08-21 09:16] VITALS: BP 108/58; PULSE 99; RESP 18; O2SAT 100
== END 2024-08-21 09:22 | disposition home or self-care (01) ==
PROVIDERS: PCP Nurse Practitioner Family; Referring Provider Nurse Practitioner; Visit Provider Internal Medicine Gastroenterology
PROC: 0DJD8ZZ Inspection of Lower Intestinal Tract, Via Natural or Artificial Opening Endoscopic (ICD-10-PCS; CPT 45378; principal; 2024-08-21 08:30)
DX: Z12.11 Encounter for screening for malignant neoplasm of colon (principal); D12.4 Benign neoplasm of descending colon; K63.5 Polyp of colon; K64.8 Other hemorrhoids; K57.30 Diverticulosis of large intestine without perforation or abscess without bleeding; K52.9 Noninfective gastroenteritis and colitis, unspecified; E78.5 Hyperlipidemia, unspecified; I10 Essential (primary) hypertension; K21.9 Gastro-esophageal reflux disease without esophagitis; G25.2 Other specified forms of tremor; E66.9 Obesity, unspecified; Z68.31 Body mass index [BMI] 31.0-31.9, adult
CPT/HCPCS: 45380; 45390; 88305; J2704; J7120

== ENCOUNTER 2024-12-08 09:41 | Outpatient (CLI) | payer MEDICARE, SELFPAY ==
--- NOTE | ~2024-12-08 | US_ITS ---
US transvaginal Ordering provider: Addie Meyer MD History: . post menopausal bleeding . Comparison: None. Technique: endovaginal ultrasound of the pelvis (Doppler ultrasound interrogation techniques used as needed for this exam.) FINDINGS: CERVIX: Normal. UTERUS: Measures 6.4x 2.6x 4.1 cm in length which is within normal limits and is anteverted. No myom etrial masses. ENDOMETRIUM: Normal in thickness measuring 3.8 mm. No endometrial masses, cysts or fluid. CUL DE SAC: No free fluid. RIGHT OVARY: Not visualized. LEFT OVARY: Not visualized. ADNEXA: Normal. No mass. IMPRESSION: Nonvisualization of the ovaries Otherwise, normal pelvic ultrasound. Reviewed, dictated and finalized at location A.
== END 2024-12-08 09:42 | disposition home or self-care (01) ==
LOC: GOSHIMG 09:42
PROVIDERS: PCP Obstetrics & Gynecology Gynecology; Visit Provider Obstetrics & Gynecology Gynecology
DX: N95.0 Postmenopausal bleeding (principal)
CPT/HCPCS: 76830

== ENCOUNTER 2025-04-13 14:45 | Outpatient (CLI) | payer MEDICARE, SELFPAY ==
--- NOTE | ~2025-04-13 | DEXA_ITS ---
Bone Density Report Name: ELLA BLUNT Age: 74 Sex: Female Ethnicity: White Date of : 1950 Indication: postmenopausal; screening for osteoporosis; cancer; Referring Provider: LOW, ERIC Study: Bone densitometry was performed. Exam Date: April 13, 2025 Accession number: [id number] Bone Density: Region BMD T-score Z-score Classification AP Spine(L1-L4) 1.049 0.0 2.3 Normal Femoral Neck (Left) 0.758 -0.8 1.2 Normal Total Hip (Left) 0.850 -0.8 1.0 Normal Femoral Neck (Right) 0.747 -0.9 1.1 Normal Total Hip (Right) 0.808 -1.1 0.6 Osteopenia Total Hip Mean 0.829 -1.0 0.8 Normal World Health Organization criteria for BMD impression classify patients as: Normal (T-score at or above -1.0), Osteopenia (T-score between -1.0 and -2.5), or Osteoporosis (T-score at or below -2.5). 10-year Fracture Risk(1): Major Osteoporotic Fracture 9.1% Hip Fracture 1.1% Reported Risk Factors: [place] (), Neck BMD=0.747, BMI=29.7 (1) FRAX(R) Version 3.08. Fracture probability calculated for an untreated patient. Fracture probability may be lower if the patient has received treatment. Previous Exams: -- Region Exam Age BMD T-score BMD Change BMD Change Date g/cm2 vs Baseline vs Previous -- AP Spine (L1-L4) 04/13/2025 74 1.049 0.0 -10.7%# 0.3% 11/13/2021 71 1.046 0.0 -11.0%# 0.8%# 01/20/2019 68 1.038 -0.1 -11.6%# -0.4% 01/15/2016 65 1.042 0.0 -11.2%# -4.4%* 11/03/2012 62 1.091 0.4 -7.1%# -4.1%* 09/24/2008 58 1.137 0.8 -3.2%# -3.2%# 02/15/2004 53 1.174 1.2 Total Hip(Left) 04/13/2025 74 0.850 -0.8 -16.7%# -8.0%* 11/13/2021 71 0.924 -0.1 -9.5%# 0.3%# 01/20/2019 68 0.921 -0.2 -9.8%# -6.1%* 01/15/2016 65 0.980 0.3 -4.0%# -2.5% 11/03/2012 62 1.005 0.5 -1.6%# -4.6%* 09/24/2008 58 1.054 0.9 3.2%# 3.2%# 02/15/2004 53 1.021 0.6 Total Hip(Right) 04/13/2025 74 0.808 -1.1 -20.6%# -6.8%* 11/13/2021 71 0.867 -0.6 -14.8%# 2.3%# 01/20/2019 68 0.847 -0.8 -16.7%# -7.9%* 01/15/2016 65 0.920 -0.2 -9.6%# -6.5%* 11/03/2012 62 0.984 0.3 -3.3%# 0.3% 09/24/2008 58 0.981 0.3 -3.6%# -3.6%# 02/15/2004 53 1.018 0.6 -- *Denotes significance at 95% confidence level, LSC for AP Spine = 0.022 g/cm2, LSC for Total Hip = 0.027 g/cm2 # Denotes dissimilar scan types or analysis methods Clinical Information Provided by Patient: Has used the following medications: Vitamin D, Calcium Has the following medical conditions: Cancer, breast cancer Patient maximum height was 65 Menopause Age: 55 Drinks caffeinated beverages Onset of menses at age 18 Number of children 3 Impression: The patient has low bone mass, based on the Right Total Hip T-score. The patient has an estimated ten-year risk of hip fracture of 1.1% and an estimated ten-year risk of major fracture of 9.1%, based on the WHO FRAX algorithm. The BMD for the Total Hip(Left) decreased, changing by -8.0% since the last DXA exam. The BMD for the Total Hip(Right) decreased, changing by -6.8% since the last DXA exam. Discussion: BONE DENSITY IS LOW AT ONE OR MORE SKELETAL SITES. This patient's lowest T-score is low at one or more skeletal sites. It meets the World Health Organization's (WHO) criteria for ?low bone mass? (T-score between -1.0 and -2.5). The patient's 10-year risk of fracture as calculated by FRAX is less than the threshold where pharmacological therapy is recommended by the National Osteoporosis Foundation (NOF). However, all treatment decisions require clinical judgment and consideration of individual patient factors, including patient preferences, comorbidities, previous drug use, risk factors not captured in the FRAX model (e.g., frailty, falls, vitamin D deficiency, increased bone turnover, interval significant decline in bone density) and possible under or overestimation of fracture risk by FRAX. The patient should follow a healthful lifestyle (good nutrition with adequate calcium and vitamin D, and appropriate weight-bearing exercise). Follow-Up: Consider repeating this study in 2 years to reassess this patient's status, or sooner if there is some new clinical indication. Reported by: DORA on 04/13/2025 3:09:00 PM. Reviewed, dictated and finalized at location A.
== END 2025-04-13 14:46 | disposition home or self-care (01) ==
LOC: MICIMG 14:47
PROVIDERS: PCP Nurse Practitioner Family
DX: M85.851 Other specified disorders of bone density and structure, right thigh (principal); Z13.820 Encounter for screening for osteoporosis; Z78.0 Asymptomatic menopausal state
CPT/HCPCS: 77080